=== PATIENT | female | born 1965 | race Caucasian/White ===

== ENCOUNTER 2020-12-23 17:00 | Outpatient (CLI) | payer BC, SELFPAY ==
--- NOTE | ~2020-12-23 | MM_ITS ---
EXAMINATION: MM scrn francy implant BI w alejandro HISTORY: Screening mammogram TECHNIQUE: Craniocaudal and mediolateral oblique 3-D tomosynthesis images with implant displacement a nd synthetic 2-D images were generated. Craniocaudal and mediolateral oblique views of the breasts wi thout implant displacement were obtained using full field digital mammography. CAD analysis was submi tted and interpreted. COMPARISON: 05/21/2018, 05/01/2017, 03/31/2016 bilateral implant digital screening mammogram examination s BREAST PARENCHYMAL COMPOSITION: The breasts are heterogeneously dense, which may obscure small masses . FINDINGS: There is no evidence of suspicious mass, calcification, or architectural distortion to sugg est malignancy in either breast. There has been no suspicious interval change. IMPRESSION: 1. No mammographic evidence of malignancy. 2. Recommend routine screening mammography in one year. BI-RADS Category 1: Negative Reviewed, dictated and finalized at location A.
== END 2020-12-23 17:01 | disposition home or self-care (01) ==
PROVIDERS: PCP Family Medicine; Visit Provider Family Medicine
DX: Z12.31 Encounter for screening mammogram for malignant neoplasm of breast (principal)
CPT/HCPCS: 77063; 77067

== ENCOUNTER 2022-01-09 15:30 | Outpatient (CLI) | payer OTHER, SELFPAY ==
--- NOTE | ~2022-01-09 | MM_ITS ---
EXAMINATION: MM scrn francy implant BI w alejandro HISTORY: Screening mammogram TECHNIQUE: Craniocaudal and mediolateral oblique 3-D tomosynthesis images with implant displacement a nd synthetic 2-D images were generated. Craniocaudal and mediolateral oblique views of the breasts wi thout implant displacement were obtained using full field digital mammography. CAD analysis was submi tted and interpreted. COMPARISON: Comparison to multiple prior studies sequentially, with oldest reviewed study dated 03/17. BREAST PARENCHYMAL COMPOSITION: There are scattered areas of fibroglandular density. FINDINGS: There is no evidence of suspicious mass, calcification, or architectural distortion to sugg est malignancy in either breast. There has been no suspicious interval change. IMPRESSION: 1. No mammographic evidence of malignancy. 2. Recommend routine screening mammography in one year. BI-RADS Category 1: Negative Reviewed, dictated and finalized at location A.
== END 2022-01-09 15:31 | disposition home or self-care (01) ==
PROVIDERS: PCP Family Medicine; Visit Provider Family Medicine
DX: Z12.31 Encounter for screening mammogram for malignant neoplasm of breast (principal)
CPT/HCPCS: 77063; 77067

== ENCOUNTER 2022-01-23 10:15 | Outpatient (CLI) | payer OTHER, SELFPAY ==
--- NOTE | ~2022-01-23 | XR_ITS ---
EXAM: XR hand BI arthritis min 3V DATE: 01/23/2022 10:32 HISTORY: EFFUSION OF HAND, PAIN . COMPARISON: 03/19/2016. FINDINGS: Normal mineralization. No fracture or dislocation. No lytic or blastic lesion. Old left ul caitlyn styloid fracture. Mild joint space narrowing in the interphalangeal joints of the fingers, bilate ral triscaphe joints, and radiocarpal joints bilaterally. Lateral subluxation of the fifth digit left hand in the ball-catcher's view, likely positional or possibly related to old trauma. No erosion or periosteal change. Soft tissues within normal limits. IMPRESSION: Mild osteoarthritic changes in the hands and wrists. Reviewed, dictated and finalized at location K.
[2022-01-23 11:05] LABS: Alanine Aminotransferase 11 U/L (6-35); Albumin Level 3.7 g/dL (3.5-5.1); Alkaline Phosphatase 75 U/L (38-126); Anion Gap 7 mmol/L (8-16); Aspartate Amino Transferase 18 U/L (14-36); Bilirubin,Total 0.4 mg/dL (0.2-1.3); Blood Urea Nitrogen 16 mg/dL (7-17); Calcium 8.1 mg/dL (8.4-10.2); Carbon Dioxide 27 mmol/L (22-30); Chloride 108 mmol/L (98-107); Cholesterol 139 mg/dL (0-200); Estimated Glomerular Filt Rate > 60; HDL Direct 46 mg/dL; Potassium 4.4 mmol/L (3.4-5.0); Sodium 142 mmol/L (137-145); Triglycerides 54 mg/dL (<150)
[2022-01-23 11:17] LABS: LDL Cholesterol Direct 72 mg/dL
[2022-01-23 11:35] LABS: Thyroid Stimulating Hormone 0.805 uIU/mL (0.465-4.680)
[2022-01-23 11:41] LABS: Glucose 96 mg/dL (65-110)
[2022-01-23 12:03] LABS: Vitamin D 25 Hydroxy 54.7 ng/mL
== END 2022-01-23 10:16 | disposition home or self-care (01) ==
LOC: ANHIMG 10:19
PROVIDERS: PCP Family Medicine; Visit Provider Family Medicine
DX: M25.449 Effusion, unspecified hand (principal); K21.9 Gastro-esophageal reflux disease without esophagitis; Z79.899 Other long term (current) drug therapy; E78.2 Mixed hyperlipidemia; E03.9 Hypothyroidism, unspecified; M19.041 Primary osteoarthritis, right hand; M19.031 Primary osteoarthritis, right wrist; M19.042 Primary osteoarthritis, left hand; M19.032 Primary osteoarthritis, left wrist
CPT/HCPCS: 36415; 73130; 80053; 80061; 82306; 82607; 82728; 84443

== ENCOUNTER 2022-02-24 15:47 | Outpatient (CLI) | payer OTHER, SELFPAY ==
[2022-02-24 17:58] LABS: Basophils Percent Auto 0.5 % (0.2-1.2); Eosinophils Absolute Auto 0.3 K/mm3 (0-0.3); Eosinophils Percent Auto 3.4 % (0-4.4); Hematocrit 38.3 % (37.0-47.0); Hemoglobin 12.4 g/dL (12.0-15.0); Immature Granulocyte Absolute 0.02 K/mm3 (0.00-0.031); Immature Granulocyte Percent A 0.3 % (0-0.5); Lymphocytes Absolute Auto 2.53 K/mm3 (0.9-3.2); Lymphocytes Percent Auto 34.2 % (18.3-44.2); Mean Corpuscular HGB Conc 32.4 g/dl (32-36); Mean Corpuscular Hemoglobin 29.4 pg (26-34); Mean Corpuscular Volume 90.8 fl (80-100); Mean Platelet Volume 9.9 fl (7.4-10.4); Monocytes Absolute Auto 0.5 K/mm3 (0.1-0.6); Monocytes Percent Auto 6.4 % (2.6-8.5); Neutrophils Absolute Auto 4.1 K/mm3 (1.3-6.7); Neutrophils Percent Auto 55.2 % (45.5-73.1); Platelet Count Result 439 k/mm3 (150-375); Red Blood Count 4.22 M/mm3 (4.2-5.4); Red Cell Distribution Width 12.6 % (11.5-14.5); White Blood Count 7.4 K/mm3 (4.5-10.0)
[2022-02-24 18:28] LABS: Rheumatoid Factor < 8.6 IU/ML (<12)
[2022-02-24 18:41] LABS: Erythrocyte Sedimentation Rate 24 mm/hr (0-20)
[2022-03-04 17:24] LABS: ANA Cascade Screen Negative (Negative)
== END 2022-02-24 15:48 | disposition home or self-care (01) ==
LOC: ANHGOSHLAB 15:48
PROVIDERS: PCP Family Medicine; Visit Provider Family Medicine
DX: M79.89 Other specified soft tissue disorders (principal); Z51.81 Encounter for therapeutic drug level monitoring; Z79.899 Other long term (current) drug therapy; M25.449 Effusion, unspecified hand
CPT/HCPCS: 36415; 85025; 85652; 86038; 86430

== ENCOUNTER 2022-04-20 15:09 | Outpatient (CLI) | payer OTHER, SELFPAY ==
--- NOTE | ~2022-04-20 | XR_ITS ---
XR lumbar spine 2-3V DATE: 04/20/2022 15:56 INDICATION: Arthropathic psoriasis TECHNIQUE: AP, lateral, coned lateral lumbosacral views COMPARISON: None FINDINGS: Thoracolumbar levoscoliosis. Included lower thoracic and lumbar pedicles are intact. No fracture or bone destruction or spondyloli sthesis. There is moderate loss of disc space height and mild spurring at L4-5 consistent with degenerative di sc disease. The sacroiliac joints appear normal. Surgical clips overlie the lower abdomen and pelvis bilaterally. IMPRESSION: Moderate degenerative disc disease at L4-5 Normal sacroiliac joints Reviewed, dictated and finalized at location B.
--- NOTE | ~2022-04-20 | XR_ITS ---
XR sacroiliac joints min 3V DATE: 04/20/2022 15:56 INDICATION: Arthropathic psoriasis TECHNIQUE: AP and bilateral oblique views of the sacroiliac joints COMPARISON: None FINDINGS: Normal alignment of the sacroiliac joints without evidence of erosive change or ankylosis. Surgical clips overlie the lower abdomen and pelvis bilaterally. Mild bilateral hip osteoarthritis. IMPRESSION: No erosive change or ankylosis at the sacroiliac joints Mild bilateral hip osteoarthritis Reviewed, dictated and finalized at Location A. Reviewed, dictated and finalized at location B.
== END 2022-04-20 15:10 | disposition home or self-care (01) ==
PROVIDERS: PCP Family Medicine; Visit Provider Internal Medicine
DX: L40.50 Arthropathic psoriasis, unspecified (principal); M16.0 Bilateral primary osteoarthritis of hip; M41.9 Scoliosis, unspecified; M47.816 Spondylosis without myelopathy or radiculopathy, lumbar region
CPT/HCPCS: 36415; 72100; 72202; 86480

== ENCOUNTER 2022-04-20 15:49 | Outpatient (CLI) | payer OTHER, SELFPAY ==
[2022-04-24 13:52] LABS: NIL 0.01 IU/mL; Quantiferon TB Plus, 1T NEGATIVE (NEGATIVE)
== END 2022-04-20 15:50 | disposition home or self-care (01) ==
LOC: ANHLAB 15:51
PROVIDERS: PCP Family Medicine; Visit Provider Internal Medicine
DX: L40.50 Arthropathic psoriasis, unspecified (principal)
CPT/HCPCS: 36415; 86480

== ENCOUNTER → 2022-09-22 07:45 | Outpatient (CLI) | payer OTHER, SELFPAY ==
--- NOTE | ~2022-09-22 | US_ITS ---
Abdominal Sonogram: Real-time sonographic imaging of the abdomen was performed. Clinical History: Abdominal pain Findings: The liver appears normal with no evidence of bile duct dilatation. There is a 1 cm hyperec hoic lesion in the right hepatic lobe. Main portal vein demonstrates normal direction of flow. The sp zak is normal in size without evidence of focal lesion. The gallbladder is well distended, and appe ars normal with no evidence of gallstone or wall thickening. The common bile duct measures 3 mm. The visualized pancreas, aorta, and IVC are unremarkable. The right kidney measures 11.4 cm in length a nd the left kidney measures 10.5 cm. There is moderate left hydronephrosis. No right hydronephrosis. Impression: Moderate left hydronephrosis. 1 cm hyperechoic lesion in the right hepatic lobe. This is most likely a small hemangioma. Consider p re and postcontrast MR to confirm. Reviewed, dictated and finalized at [facility]. NG GUIDE Impression: Moderate left hydronephrosis. 1 cm hyperechoic lesion in the right hepatic lobe. This is most likely a small hemangioma. Consider pre and postcontrast MR to confirm.
== END ==
PROVIDERS: PCP Family Medicine; Visit Provider Family Medicine
DX: R10.9 Unspecified abdominal pain (principal); R63.4 Abnormal weight loss; Z80.0 Family history of malignant neoplasm of digestive organs; N13.30 Unspecified hydronephrosis
CPT/HCPCS: 76700

== ENCOUNTER → 2022-09-22 07:47 | Outpatient (CLI) | payer OTHER, SELFPAY ==
--- NOTE | ~2022-09-22 | MR_ITS ---
MRI of the left hand CLINICAL HISTORY: Pain and swelling TECHNIQUE: Axial T1-weighted, T2 fat sat, and T1 fat-sat images, coronal T1-weighted and T2 fat-sat i mages, and sagittal T1-weighted and T2 fat-sat images were performed. Following intravenous administr ation of 14 cc MultiHance gadolinium, T1-weighted fat-sat imaging was performed in the axial and sagi ttal planes. FINDINGS: Bone marrow signals are unremarkable. No fracture or bone marrow edema. No evidence for ost eitis. No erosive change identified. There are small joint effusions at the second metacarpophalangeal and second PIP joints. Visualized c ollateral ligaments and the hand appear intact. There is fluid distention of the flexor digitorum superficialis tendon sheath in the palm of the hand , distal to the carpal tunnel. There is additional mild tenosynovitis along the course of the first, third, and fourth flexor tendons in the digits. There is tenosynovitis of the visualized extensor car pi ulnaris tendon at the wrist. Visualized musculature of the hand demonstrates normal signal intensity. No soft tissue mass evident. IMPRESSION: Tenosynovitis of the flexor digitorum superficialis tendon sheaths in the palm of the hand, with elvie tional tenosynovitis extending along the course of the first, third, and fourth flexor tendons in the digits. Additional tenosynovitis, partially imaged, of the extensor carpi ulnaris tendon at the wrist. Small joint effusions at the second PIP and second MCP joints. Reviewed, dictated and finalized at [facility]. GER ADMINISTRATIVE IMPRESSION: Tenosynovitis of the flexor digitorum superficialis tendon sheaths in the palm of the hand, with additional tenosynovitis extending along the course of the fi rst, third, and fourth flexor tendons in the digits. Additional tenosynovitis, partially imaged, of the extensor carpi ulnaris tendo n at the wrist. Small joint effusions at the second PIP and second MCP joints.
--- NOTE | ~2022-09-22 | MR_ITS ---
MRI of the right hand CLINICAL HISTORY: Inflammatory arthropathy TECHNIQUE: Axial T1-weighted and T2 fat sat, and T1 fat-sat images, coronal T1-weighted and T2 fat-sa t images, and sagittal T1-weighted and T2 fat-sat images were performed. Following intravenous admini stration of 14 cc MultiHance gadolinium, T1-weighted fat-sat imaging was performed in the axial and s agittal planes. FINDINGS: Bone marrow signals are unremarkable. No fracture or bone marrow edema. No periosteal react ion or evidence for osteomyelitis. Joint spaces are preserved. No significant degenerative or erosive change. No significant joint effusion. Visualized collateral ligaments throughout the hand appear in tact. There is fluid distention of the flexor digitorum superficialis tendon sheath in the region of the pa lm, there is distal to the carpal tunnel. There is also fluid distention of the proximal most portion of the visualized extensor carpi ulnaris tendon sheath, with probable minimal fluid distention of th e proximal most portion of the visualized extensor digitorum tendon sheaths. There is extensive, mild tenosynovitis of the fifth digit flexor tendon. Visualized musculature of the hand is unremarkable. No tendon rupture identified. IMPRESSION: Tenosynovitis of the flexor digitorum superficialis in the palm of the hand, distal to the carpal jermaine lynne. Additional tenosynovitis of the proximal most visualized portions of the extensor carpi ulnaris and e xtensor digitorum tendon sheaths (at the wrist). Extensive, mild tenosynovitis of the fifth digit flexor tendon. Reviewed, dictated and finalized at [facility]. ENT MANAGER IMPRESSION: Tenosynovitis of the flexor digitorum superficialis in the palm of the hand, di stal to the carpal tunnel. Additional tenosynovitis of the proximal most visualized portions of the extens or carpi ulnaris and extensor digitorum tendon sheaths (at the wrist). Extensive, mild tenosynovitis of the fifth digit flexor tendon.
== END ==
PROVIDERS: PCP Family Medicine; Visit Provider Internal Medicine
DX: M19.041 Primary osteoarthritis, right hand (principal); M19.042 Primary osteoarthritis, left hand
CPT/HCPCS: 73220; A9577

== ENCOUNTER → 2022-10-20 15:16 | Outpatient (CLI) | payer OTHER, SELFPAY ==
--- NOTE | ~2022-10-20 | MR_ITS ---
EXAMINATION: MR abdomen wo/w con DATE: 10/20/2022 16:14 INDICATION: Liver mass. TECHNIQUE: Magnetic resonance imaging (MRI) of the abdomen was performed without and with 15 mL Multi Michelle intravenous contrast. COMPARISON: Abdomen ultrasound 09/22/2022, CT abdomen and pelvis 01/29/2016 FINDINGS: There are bilateral breast implants. There is intracapsular rupture of the left breast implant. There is a 7 mm cyst in left hepatic lobe. In the right hepatic lobe, there is a 12 mm mass with delayed h yperenhancement, consistent with a hemangioma. The gallbladder, spleen, pancreas, adrenal glands, and right kidney are normal. 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 There is hydronep hrosis of the upper pole moiety with severe atrophy. There is severe hydronephrosis and proximal hydr oureter of the mid zone and lower pole moiety. There are no dilated loops of bowel. There are no path ologically enlarged lymph nodes. There is no free intraperitoneal fluid. IMPRESSION: 1. 12 mm liver mass with delayed hyperenhancement and hyperechogenicity on the prior ultrasound, cons istent with a hemangioma. 2. 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 Hydronephrosis and severe atrophy of the upper po le moiety. Severe hydronephrosis and proximal hydroureter of the mid zone and lower pole moiety. CT a bdomen and pelvis without and with contrast (CT urogram) is recommended. Reviewed, dictated and finalized at location A. IMPRESSION: 1. 12 mm liver mass with delayed hyperenhancement and hyperechogenicity on the prior ultrasound, consistent with a hemangioma. 2. 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 Hydronephrosis and severe a trophy of the upper pole moiety. Severe hydronephrosis and proximal hydroureter of the mid zone and lower pole moiety. CT abdomen and pelvis without and with contrast (CT urogram) is recommended.
== END ==
PROVIDERS: PCP Family Medicine; Visit Provider Family Medicine
DX: R93.5 Abnormal findings on diagnostic imaging of other abdominal regions, including retroperitoneum (principal); R16.0 Hepatomegaly, not elsewhere classified; N13.30 Unspecified hydronephrosis
CPT/HCPCS: 74183; A9577

== ENCOUNTER → 2022-11-01 15:17 | Outpatient (CLI) | payer OTHER, SELFPAY ==
--- NOTE | ~2022-11-01 | CT_ITS ---
EXAMINATION: CT abdomen pelvis wo/w con DATE: 11/01/2022 15:55 INDICATION: Unspecified hydronephrosis TECHNIQUE: Computed tomography (CT) of the abdomen and pelvis was performed without intravenous contr ast. CT of the abdomen and pelvis was then performed with a total of 130 mL Omnipaque 350 intravenous contrast using a double-bolus technique for simultaneous opacification of the renal parenchyma and r enal collecting system. The dose-length product (DLP) was 1301.22 mGy-cm. Automated exposure control and iterative reconstruction technique were employed. COMPARISON: 01/29/2016 FINDINGS: Minimal dependent atelectasis is present in the lung bases. The heart size is normal. There are bilateral breast implants with intracapsular rupture of the left breast implant. The liver, sple en, pancreas, gallbladder, and adrenal glands are normal. The right kidney is unremarkable. No pathol ogically enlarged abdominal or pelvic lymph nodes are identified. No free intraperitoneal gas or evid ence of bowel obstruction. Changes of pelvic lymph node dissection are noted. There is mild lumbar sp ondylosis. 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 The upper pole collecting system appears to end in an extravesical ureterocele near the bladder neck/urethra. The lower pole co llecting system terminates in the bladder is superolateral to the upper pole system. There is moderat e hydronephrosis of the lower pole system. There is complete atrophy of the upper pole of the kidney served by the upper pole collecting system. IMPRESSION: 1. 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 2. Chronic atrophy of the left kidney upper pole moiety with chronic left hydroureter ending in the e ctopic ureterocele Reviewed, dictated and finalized at location L. IMPRESSION: 1. 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 2. Chronic atrophy of the left kidney upper pole moiety with chronic left hydro ureter ending in the ectopic ureterocele
== END ==
PROVIDERS: PCP Physician Assistant; Visit Provider Physician Assistant
DX: N13.30 Unspecified hydronephrosis (principal); Q63.0 Accessory kidney; N26.1 Atrophy of kidney (terminal); N13.4 Hydroureter
CPT/HCPCS: 74178; Q9967

== ENCOUNTER 2022-11-16 15:36 | Outpatient (CLI) | payer OTHER, SELFPAY ==
[2022-11-16 19:37] LABS: Basophils Percent Auto 0.4 % (0.2-1.2); Eosinophils Absolute Auto 0.1 K/mm3 (0-0.3); Eosinophils Percent Auto 1.8 % (0-4.4); Hematocrit 38.1 % (37.0-47.0); Hemoglobin 12.5 g/dL (12.0-15.0); Immature Granulocyte Absolute 0.02 K/mm3 (0.00-0.031); Immature Granulocyte Percent A 0.3 % (0-0.5); Lymphocytes Absolute Auto 1.93 K/mm3 (0.9-3.2); Lymphocytes Percent Auto 26.7 % (18.3-44.2); Mean Corpuscular HGB Conc 32.8 g/dl (32-36); Mean Corpuscular Hemoglobin 28.5 pg (26-34); Mean Corpuscular Volume 86.8 fl (80-100); Mean Platelet Volume 9.8 fl (7.4-10.4); Monocytes Absolute Auto 0.4 K/mm3 (0.1-0.6); Monocytes Percent Auto 6.1 % (2.6-8.5); Neutrophils Absolute Auto 4.7 K/mm3 (1.3-6.7); Neutrophils Percent Auto 64.7 % (45.5-73.1); Platelet Count Result 381 k/mm3 (150-375); Red Blood Count 4.39 M/mm3 (4.2-5.4); Red Cell Distribution Width 13.3 % (11.5-14.5); White Blood Count 7.2 K/mm3 (4.5-10.0)
[2022-11-16 19:55] LABS: Alanine Aminotransferase 15 U/L (6-35); Alkaline Phosphatase 78 U/L (38-126); Anion Gap 5 mmol/L (8-16); Aspartate Amino Transferase 22 U/L (14-36); Bilirubin,Total 0.8 mg/dL (0.2-1.3); Blood Urea Nitrogen 19 mg/dL (7-17); Carbon Dioxide 27 mmol/L (22-30); Chloride 107 mmol/L (98-107); Cholesterol 156 mg/dL (0-200); Estimated Glomerular Filt Rate > 60; Glucose 83 mg/dL (65-110); HDL Direct 53 mg/dL; Potassium 3.9 mmol/L (3.4-5.0); Sodium 139 mmol/L (137-145); Triglycerides 101 mg/dL (<150)
[2022-11-16 20:06] LABS: LDL Cholesterol Direct 83 mg/dL
[2022-11-16 20:41] LABS: Thyroid Stimulating Hormone 0.238 uIU/mL (0.465-4.680)
== END 2022-11-16 15:37 | disposition home or self-care (01) ==
LOC: ANHGOSHLAB 15:36
PROVIDERS: PCP Physician Assistant; Visit Provider Physician Assistant
DX: E03.9 Hypothyroidism, unspecified (principal); E66.3 Overweight; E78.2 Mixed hyperlipidemia; N13.30 Unspecified hydronephrosis
CPT/HCPCS: 36415; 80053; 80061; 84443; 85025

== ENCOUNTER 2022-12-21 08:01 | Outpatient (CLI) | payer OTHER, SELFPAY ==
[2022-12-21 19:28] LABS: Basophils Percent Auto 0.5 % (0.2-1.2); Eosinophils Absolute Auto 0.4 K/mm3 (0-0.3); Eosinophils Percent Auto 4.6 % (0-4.4); Hematocrit 40.4 % (37.0-47.0); Hemoglobin 12.9 g/dL (12.0-15.0); Immature Granulocyte Absolute 0.03 K/mm3 (0.00-0.031); Immature Granulocyte Percent A 0.4 % (0-0.5); Lymphocytes Absolute Auto 1.37 K/mm3 (0.9-3.2); Lymphocytes Percent Auto 16.3 % (18.3-44.2); Mean Corpuscular HGB Conc 31.9 g/dl (32-36); Mean Corpuscular Hemoglobin 28.8 pg (26-34); Mean Corpuscular Volume 90.2 fl (80-100); Mean Platelet Volume 9.5 fl (7.4-10.4); Monocytes Absolute Auto 0.5 K/mm3 (0.1-0.6); Monocytes Percent Auto 6.2 % (2.6-8.5); Neutrophils Absolute Auto 6.1 K/mm3 (1.3-6.7); Platelet Count Result 383 k/mm3 (150-375); Red Blood Count 4.48 M/mm3 (4.2-5.4); Red Cell Distribution Width 13.5 % (11.5-14.5); White Blood Count 8.4 K/mm3 (4.5-10.0)
== END 2022-12-21 08:02 | disposition home or self-care (01) ==
LOC: ANHGOSHLAB 08:03
PROVIDERS: PCP Physician Assistant; Visit Provider Physician Assistant
DX: D75.839 Thrombocytosis, unspecified (principal); R79.89 Other specified abnormal findings of blood chemistry
CPT/HCPCS: 36415; 84443; 85025

== ENCOUNTER 2023-02-07 16:08 | Outpatient (CLI) | payer OTHER, SELFPAY | END 2023-02-07 16:09 | disposition home or self-care (01) | LOC: ANHGOSHLAB 16:12 | PROVIDERS: PCP Physician Assistant | DX: N13.30 Unspecified hydronephrosis (principal) | CPT/HCPCS: 87086 ==

== ENCOUNTER 2023-02-27 19:22 | Outpatient (NON) | payer OTHER, SELFPAY | END 2023-02-27 19:23 | disposition home or self-care (01) | LOC: ANHOBOP 19:30 | PROVIDERS: PCP Family Medicine; Visit Provider Family Medicine | DX: R31.9 Hematuria, unspecified (principal) | CPT/HCPCS: 87086 ==

== ENCOUNTER 2023-07-12 08:11 | Outpatient (CLI) | payer OTHER, SELFPAY ==
[2023-07-12 20:31] LABS: Basophils Percent Auto 0.5 % (0.2-1.2); Eosinophils Absolute Auto 0.1 K/mm3 (0-0.3); Eosinophils Percent Auto 1.6 % (0-4.4); Hematocrit 40.2 % (37.0-47.0); Hemoglobin 12.9 g/dL (12.0-15.0); Immature Granulocyte Absolute 0.03 K/mm3 (0.00-0.031); Immature Granulocyte Percent A 0.4 % (0-0.5); Lymphocytes Absolute Auto 1.49 K/mm3 (0.9-3.2); Lymphocytes Percent Auto 18.2 % (18.3-44.2); Mean Corpuscular HGB Conc 32.1 g/dl (32-36); Mean Corpuscular Hemoglobin 28.4 pg (26-34); Mean Corpuscular Volume 88.5 fl (80-100); Mean Platelet Volume 9.9 fl (7.4-10.4); Monocytes Absolute Auto 0.5 K/mm3 (0.1-0.6); Monocytes Percent Auto 6.2 % (2.6-8.5); Neutrophils Percent Auto 73.1 % (45.5-73.1); Platelet Count Result 439 k/mm3 (150-375); Red Blood Count 4.54 M/mm3 (4.2-5.4); Red Cell Distribution Width 13.1 % (11.5-14.5); White Blood Count 8.2 K/mm3 (4.5-10.0)
== END 2023-07-12 08:12 | disposition home or self-care (01) ==
LOC: ANHGOSHLAB 08:13
PROVIDERS: PCP Family Medicine; Visit Provider Physician Assistant
DX: D75.839 Thrombocytosis, unspecified (principal); R79.89 Other specified abnormal findings of blood chemistry
CPT/HCPCS: 36415; 84443; 85025

== ENCOUNTER 2023-07-26 13:45 | Outpatient (CLI) | payer OTHER, SELFPAY ==
--- NOTE | ~2023-07-26 | MM_ITS ---
EXAMINATION: MM scrn francy implant BI w alejandro HISTORY: Screening mammogram TECHNIQUE: Craniocaudal and mediolateral oblique 3-D tomosynthesis images with implant displacement a nd synthetic 2-D images were generated. Craniocaudal and mediolateral oblique views of the breasts wi thout implant displacement were obtained using full field digital mammography. CAD analysis was submi tted and interpreted. COMPARISON: 01/09/2022, 12/23/2020, 05/21/2018 bilateral implant screening mammogram examinations BREAST PARENCHYMAL COMPOSITION: The breasts are heterogeneously dense, which may obscure small masses . FINDINGS: Status post bilateral augmentation mammoplasty.. There is no evidence of suspicious mass, c alcification, or architectural distortion to suggest malignancy in either breast. There has been no s uspicious interval change. IMPRESSION: 1. No mammographic evidence of malignancy. 2. Recommend routine screening mammography in one year. BI-RADS Category 1: Negative Reviewed, dictated and finalized at location A. E TESTER
--- NOTE | ~2023-07-26 | DEXA_ITS ---
Bone Density Report Name: PHYLLIS CHATMAN Age: 58 Sex: Female Ethnicity: White Date of : 1965 Indication: postmenopausal; screening for osteoporosis; parental hip fracture; hysterectomy; Referring Provider: RAGHAV ELDER Study: Bone densitometry was performed. Exam Date: July 26, 2023 Accession number: [id number] Bone Density: Region BMD T-score Z-score Classification AP Spine(L1-L4) 0.956 -0.8 0.3 Normal Femoral Neck (Left) 0.649 -1.8 -0.7 Osteopenia Total Hip (Left) 0.763 -1.5 -0.7 Osteopenia Femoral Neck (Right) 0.643 -1.9 -0.7 Osteopenia Total Hip (Right) 0.750 -1.6 -0.8 Osteopenia Total Hip Mean 0.757 -1.6 -0.8 Osteopenia World Health Organization criteria for BMD impression classify patients as: Normal (T-score at or above -1.0), Osteopenia (T-score between -1.0 and -2.5), or Osteoporosis (T-score at or below -2.5). 10-year Fracture Risk(1): Major Osteoporotic Fracture 15% Hip Fracture 0.8% Reported Risk Factors: [place] (), Neck BMD=0.643, BMI=25.2, parental fracture (1) FRAX(R) Version 3.08. Fracture probability calculated for an untreated patient. Fracture probability may be lower if the patient has received treatment. Clinical Information Provided by Patient: Parent has had a hip fracture Has used the following medications: HRT (i.e. estrogen/hormone therapy) Has the following medical conditions: Hysterectomy Patient maximum height was 68 Menopause Age: 41 Does not regularly consume dairy products Onset of menses at age 17 Number of children 2 Impression: The patient has low bone mass, based on the Right Femoral Neck T-score. The patient has an estimated ten-year risk of hip fracture of 0.8% and an estimated ten-year risk of major fracture of 15%, based on the WHO FRAX algorithm. The patient has risk factors, including: parental hip fracture. Discussion: BONE DENSITY IS LOW AT ONE OR MORE SKELETAL SITES. This patient's lowest T-score is low at one or more skeletal sites. It meets the World Health Organization's (WHO) criteria for ?low bone mass? (T-score between -1.0 and -2.5). The patient's 10-year risk of fracture as calculated by FRAX is less than the threshold where pharmacological therapy is recommended by the National Osteoporosis Foundation (NOF). However, all treatment decisions require clinical judgment and consideration of individual patient factors, including patient preferences, comorbidities, previous drug use, risk factors not captured in the FRAX model (e.g., frailty, falls, vitamin D deficiency, increased bone turnover, interval significant decline in bone density) and possible under or overestimation of fracture risk by FRAX. The patient should follow a healthful lifestyle (good nutrition with adequate calcium and vitamin D, and a
== END 2023-07-26 13:46 | disposition home or self-care (01) ==
LOC: ANHIMG 13:48
PROVIDERS: PCP Family Medicine; Visit Provider Obstetrics & Gynecology Gynecology
DX: Z12.31 Encounter for screening mammogram for malignant neoplasm of breast (principal); M85.89 Other specified disorders of bone density and structure, multiple sites; Z78.0 Asymptomatic menopausal state
CPT/HCPCS: 77063; 77067; 77080

== ENCOUNTER 2023-12-17 09:29 | Outpatient (CLI) | payer BC, SELFPAY ==
--- NOTE | ~2023-12-17 | XR_ITS ---
Left Knee Technique: AP and lateral views were obtained. Clinical History: Pain Findings: No fracture or dislocation is seen. Osseous alignment is anatomic. Joint spaces are preserv ed without degenerative or erosive change. Small joint effusion is seen. Impression: Small joint effusion. Reviewed, dictated and finalized at [facility]. Impression: Small joint effusion.
--- NOTE | ~2023-12-17 | XR_ITS ---
AP/oblique views of the SI joints CLINICAL HISTORY: Pain FINDINGS: There is minimal degenerative change SI joints. No erosive or sclerotic change. No ankylosi s. Bilateral hip joints are intact. Soft tissues are unremarkable aside from scattered surgical clips . IMPRESSION: Minimal degenerative change of the SI joints. Reviewed, dictated and finalized at location .
--- NOTE | ~2023-12-17 | XR_ITS ---
Right Hand Technique: PA, oblique, and lateral views were obtained. Clinical History: Pain Findings: No acute fracture or dislocation is seen. Osseous alignment is anatomic. There is mild dege nerative change of the interphalangeal joints of the fingers. Soft tissues are unremarkable. Impression: Mild degenerative change scattered in the interphalangeal joints of the fingers. Reviewed, dictated and finalized at location . Impression: Mild degenerative change scattered in the interphalangeal joints of the fingers .
--- NOTE | ~2023-12-17 | XR_ITS ---
Left Hand Technique: PA, oblique, and lateral views were obtained. Clinical History: Pain Findings: No acute fracture or dislocation is seen. Osseous alignment is anatomic. There is mild dege nerative change of the interphalangeal joints of the fingers. Soft tissues are unremarkable. Impression: Mild degenerative change of the interphalangeal joints of the fingers. Reviewed, dictated and finalized at location . Impression: Mild degenerative change of the interphalangeal joints of the fingers.
--- NOTE | ~2023-12-17 | XR_ITS ---
Right Knee Technique: AP and lateral views were obtained. Clinical History: Pain Findings: No fracture or dislocation is seen. Osseous alignment is anatomic. Mild degenerative spurri ng noted. Soft tissues are unremarkable. No joint effusion is seen. Impression: Mild degenerative spurring. Reviewed, dictated and finalized at location . Impression: Mild degenerative spurring.
--- NOTE | ~2023-12-17 | XR_ITS ---
Cervical Spine: AP, lateral, open-mouth views Clinical History: Pain Findings: There is reversal normal cervical lordosis. There is 2 mm anterolisthesis of C3 over C4. Th ere is moderate degenerative disc narrowing at C4-C5, C5-C6, and C6-C7. Mild facet arthropathy is pre sent. Pre-vertebral soft tissues are unremarkable. Impression: 2 mm anterolisthesis of C3 over C4. Moderate degenerative spondylosis, as above. Reviewed, dictated and finalized at location . Impression: 2 mm anterolisthesis of C3 over C4. Moderate degenerative spondylosis, as above.
== END 2023-12-17 09:30 ==
LOC: MICIMG 09:35
PROVIDERS: PCP Family Medicine; Visit Provider Internal Medicine
DX: M19.042 Primary osteoarthritis, left hand (principal); M19.041 Primary osteoarthritis, right hand; M46.1 Sacroiliitis, not elsewhere classified; M47.892 Other spondylosis, cervical region; M25.761 Osteophyte, right knee; M25.462 Effusion, left knee
CPT/HCPCS: 72050; 72202; 73130; 73560

== ENCOUNTER 2024-10-24 10:38 | Outpatient (CLI) | payer BC, SELFPAY ==
--- OUTSIDE RECORDS SUMMARY | 2024-10-24 11:35 | XMS_ITS | Patient Health Record ---
Author Organization [facility] [employer] Address [address] [place], [place] [address] Care Team Providers Care Papier Mache' Molder Name Role Phone GWEN GOMES MD Primary Care Provider Unav Latonia Riojas Unavailable [phone] ScheJoanne berman Unavailable ALLERGIES No Known Allergies RESULTS Component Value Reference Range Notes Uric Acid, Serum Reviewed date:12/25/2023 02:27:45 PM Interpretation: Performing Lab:[facility] [place], [address] [place] [address], Phone - [phone], Director - [facility] Notes/Report: Uric Acid 5.0 3.0-7.2 mg/dL Therapeutic ta rget for gout patients: <6.0 Complement C4, Serum Reviewed date:12/25/2023 02:22:00 PM Interpretation: Performing Lab:[facility] [place], [address] [place] [address], Phone - [phone], Director - [facility] Notes/Report: Complement C4, Serum 25 12-38 mg/dL T4 Free Reviewed date:12/25/2023 02:29:16 PM Interpretation: Performing Lab[facility] [address] [place] [address], Phone - [phone], Director - [facility] Notes/Report: T4,Free(Direct) 1.42 0.82-1.77 ng/dL TSH Reviewed date:12/25/2023 02:29:04 PM Interpretation: Performing Lab:[facility] [place], [address] [facility], Phone - [phone], Director - [facility] hospital[facility] Notes/Report: TSH 1.920 0.450-4.500 uIU/mL CBC With Differential/Platel et Reviewed date:12/25/2023 02:28:52 PM Interpretation: Performing Lab:[facility] [place], [address] [place] [address], Phone - [phone], Director - Laura Notes/Report: WBC 8.3 3.4-10.8 x10E3/uL RBC 4.71 3.77-5.28 x10E6/uL Hemoglobin 13.1 11.1-15.9 g/dL Hematocrit 41.8 34.0-46.6 % MCV 89 79-97 fL MCH 27.8 26.6-33.0 pg MCHC 31.3 31.5-35.7 g/dL RDW 13.2 11.7-15.4 % Platelets 415 150-450 x10E3/uL Neutrophils 72 Not Estab. % Lymphs 18 Not Estab. % Monocytes 7 Not Estab. % Eos 3 Not Estab. % Basos 0 Not Estab. % Immature Cells Neutrophils (Absolute) 6.0 1.4-7.0 x10E3/uL Lymphs (Absolute) 1.5 0.7-3.1 x10E3/uL Monocytes(Absolute) 0.5 0.1-0.9 x10E3/uL Eos (Absolute) 0.2 0.0-0.4 x10E3/uL Baso (Absolute) 0.0 0.0-0.2 x10E3/uL Immature Granulocytes 0 Not Estab. % Immature Grans (Abs) 0.0 0.0-0.1 x10E3/uL NRBC Hematology Comments: Sed Rate - Westergren Reviewed date:12/25/2023 02:21:58 PM Interpretation: Performing Lab:[facility] [place], [address] [place] [address], Phone - [phone], Director - Laura Notes/Report: Sedimentation Rate-Westergren 34 0-40 mm/hr Complement C3, Serum Reviewed date:12/25/2023 05:21:05 PM Interpretation: Performing Lab:[facility] [place], [address] [place] [address], Phone - [phone], Director - Laura Notes/Report: Complement C3, Serum 169 82-167 mg/dL Rheumatoid Arthritis Factor Reviewed date:12/25/2023 02:27:53 PM Interpretation: Performing Lab:[facility] [address] [place] [address], Phone - [phone], [facility] Notes/Report: Rheumatoid Factor (RF) 10.0 <14.0 IU/mL C-Reactive Protein, Quant Reviewed date:12/25/2023 05:43:50 PM Interpretation: Performing Lab:[address], Phone - [phone], Director - [facility] Notes/Report: C-Reactive Protein, Quant 13 0-10 mg/L HLA B 27 Disease Association Reviewed date:12/25/2023 02:29:01 PM Interpretation: Performing Lab:[address], Phone - [phone], Director - [facility] Notes/Report: HLA-B27 Negative HLA-B*27 Negative B27 allele interpretation for all loci based on IMGT/HLA database version 3.51.0 This test was developed and its performance characteristics determined by [facility]. It has not been cleared or approved by the Food and Drug Administration. HLA Lab CLIA ID Number [id number] This test was performed using Polymerase Chain Reaction (PCR) and Sequence Specific Oligonucleotide Probes (SSOP) technique. Sequence Based Typing (SBT) may be used as a supplemental method when necessary. If you have questions, please call [employer] service at or email at [email or web address]. CCP IgG Antibodies Reviewed date:12/25/2023 02:22:06 PM Interpretation: Performing Lab:[facility] [address] [place] [address], Phone - [phone], Director - [facility] Notes/Report: Anti-CCP Ab, IgG/IgA 8 0-19 units Negative <20 Weak positive 20 - 39 Moderate positive 40 - 59 Strong positive >59 Comp. Metabolic Panel (14) Reviewed date:12/25/2023 02:28:58 PM Interpretation: Performing Lab:[facility] [address] [place] [address], Phone - [phone], [facility] Notes/Report: Glucose 96 70-99 mg/dL BUN 19 6-24 mg/dL Creatinine 0.86 0.57-1.00 mg/dL eGFR 79 >59 mL/min/1.73 BUN/Creatinine Ratio 22 9-23 Sodium 141 134-144 mmol/L Potassium 4.6 3.5-5.2 mmol/L Chloride 105 96-106 mmol/L Carbon Dioxide, Total 24 20-29 mmol/L Calcium 9.3 8.7-10.2 mg/dL Protein, Total 7.2 6.0-8.5 g/dL Albumin 4.1 3.8-4.9 g/dL Globulin, Total 3.1 1.5-4.5 g/dL A/G Ratio 1.3 1.2-2.2 Bilirubin, Total 0.7 0.0-1.2 mg/dL Alkaline Phosphatase 85 44-121 IU/L AST (SGOT) 15 0-40 IU/L ALT (SGPT) 12 0-32 IU/L ALISSA Panel (ALISSA+VANIA+Scl 70+Sj Nadir+SjoSSB) Reviewed date:12/25/2023 02:28:40 PM Interpretation: Performing Lab:[facility] [address] [facility], Phone - [phone], Director - [facility] Notes/Report: ALISSA by IFA Rfx Titer/Pattern Negative Negative <1:80 Borderline 1:80 Positive >1:80 ICAP nomenclature: AC-0 For more information about Hep-2 cell patterns use ANApatterns.org, the official website for the International Consensus on Antinuclear Antibody (ALISSA) Patterns (ICAP). MINING CONSULTANT Antibodies <0.2 0.0-0.9 AI Rodríguez Antibodies <0.2 0.0-0.9 AI Antiscleroderma-70 Antibodies <0.2 0.0-0.9 AI Sjogren's Anti-SS-A <0.2 0.0-0.9 AI Sjogren's Anti-SS-B <0.2 0.0-0.9 AI VITAMIN B12 Reviewed date:12/25/2023 02:27:41 PM Interpretation: Performing Lab:[facility] [address] [facility] [place] [place], Phone - [phone], Director - [facility] Notes/Report: Vitamin B12 282 653-0242 pg/mL DS DNA-CRITHIDIA IFA W/REFLE X TO TITER-[facility] Reviewed date:12/25/2023 02:28:33 PM Interpretation: Performing Lab:[address], Phone - [phone], Director - [facility] Notes/Report: dsDNA Crithidia luciliae IFA Negative Negative QUANTIFERON(R)-TB GOLD PLUS, 1 TUBE Reviewed date:12/25/2023 05:43:59 PM Interpretation: Performing Lab:[address], Phone - [phone], Director - [facility] Notes/Report: QuantiFERON Incubation Incubation performed. QuantiFERON-TB Gold Plus Negative Negative No response to M tuberculosis antigens detected. Infection with M tuberculosis is unlikely, but high risk individuals should be considered for additional testing (ATS/IDSA/CDC Clinical Practice Guidelines, 2017). The reference range is an Antigen minus Nil result of <0.35 IU/mL. Chemiluminescence immunoassay methodology QuantiFERON Criteria QuantiFERON-TB Gold Plus is a qualitative indirect test for M tuberculosis infection (including disease) and is intended for use in conjunction with risk assessment, radiography, and other medical and diagnostic evaluations. The QuantiFERON-TB Gold Plus result is determined by subtracting the Nil value from either TB antigen (Ag) value. The Mitogen tube serves as a control for the test. QuantiFERON TB1 Ag Value 0.02 QuantiFERON TB2 Ag Value 0.03 QuantiFERON Nil Value 0.02 QuantiFERON Mitogen Value >10.00 Acute Hepatitis Reviewed date:12/25/2023 02:28:31 PM Interpretation: Performing Lab:[facility], [address] [place] [address], Phone - [phone], Director - [facility] Notes/Report: Hep A Ab, IgM Negative Negative HBsAg Screen Negative Negative Hep B Core Ab, IgM Negative Negative HCV Ab Non Reactive Non Reactive Interpretation: Not infected with HCV unless early or acute infection is suspected (which may be delayed in an immunocompromised individual), or other evidence exists to indicate HCV infection. REASON FOR REFERRAL No Information MEDICATIONS Medication SIG (Take, Route, Frequency, Duration) Notes Start Date End Date Status predniSONE 5 mg 6 tablets for 2 days then decrease by 1 tablet every 2 days until sunny orally once a day for 12 days 04/15/2024 Not-Taking levothyroxine 75 mcg (0.075 mg) 1 tab(s) orally once a day Active Metamucil 3.4 g/5.2 g as directed orally once a day Active Xiidra 5% 1 gtt eye as directed Active fish oil/omega 3 1200mg/720mg Active Aspirin Low Dose 81 mg 1 tab(s) orally o nce a day Active famotidine 20 mg 1 tab(s) orally 2 ti mes a day Active estradiol 1 mg 1 tab(s) orally once a day Active Caltrate 600 + D 600 mg-20 mcg 1 tab(s) orally 2 times a day Active Multivites as directed Active Vitamin C 250 mg 1 tab(s) chewed once a day Active Vitamin D3 1250 mcg 1 cap(s) orally once a week Active predniSONE 5 mg 6 tablets for 1 day, decrease by 1 tablet every day orally once a day for 6 days 02/22/2024 Not-Taking Digestive Advantage Daily Probiotics - 1 cap(s) orally once a day Active CeleBREX 200 mg 1 cap(s) orally 2 ti mes a day for 30 days Active methotrexate 2.5 mg 6 tabs orally once a week for 28 days Active Hadlima PushTouch Autoinjector bwwd 40 mg/0.4 mL 0.4 mL subcutaneously every other week for 28 days 04/09/2024 Active glucosamine chondritin MSN 1500mg/1250mg Active Boswellia Complex M1150 1 tab 2-4 times daily Active Digestive Enzymes 1 tab bid/meals Active biotin 5000 mcg 1 tab(s) orally once a day Active Zinc orally Active curamed 750mg 1 bid Active CoQ10 (obsolete) 100 mg 1 cap(s) orally once a day 1000mg Active Collagen supplement daily Active SOCIAL HISTORY Sex Assigned At : Social History Observation Description Sex Assigned At Unknown PROBLEMS Problem Type ICD Code Onset Dates Problem Status W/U Status Risk SNOMED Code Notes Problem Psoriasis (L40.9) Active confirmed 9014 002 Problem Encounter for other specified special examinations (Z01.89) Active confirmed 881012610 Problem Psoriatic arthritis (L40.50) Active confirmed 183480089 Problem Primary generalized (osteo)arthritis (M15.0) Active confirmed 264263074 Problem Degenerative lumbar disc (M51.36) Active confirmed 83394342 VITAL SIGNS Heart Rate 70 /min 05/14/2024 Blood pressure diastolic 73 mm Hg 05/14/2024 Height 68 in 05/14/2024 Blood pressure systolic 115 mm Hg 05/14/2024 Weight 160 lbs 05/14/2024 BMI 24.33 kg/m2 05/14/2024 Encounters Encounter Location Date Provider Diagnosis [facility], [address] [id number] 01/04/2024 Joanne Scheidemantel Psoriasis L40.9 and Encounter for drug therapy Z79.899 [facility] [address] [place] [address], [facility] [address] [place], [place] [id number] 12/17/2023 Latonia Debelloendorf Polyarthralgia M25.5 0 ; Dorsalgia, unspecified M54.9 ; Neck pain M54.2 ; Psoriasis L40.9 ; 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 ; Encounter for other specified special examinations Z01.89 and Encounter for screening for respiratory tuberculosis Z11.1 [facility] [address] [place] [address], [address] [id number] 02/22/2024 Joanne Scheidemantel Psoriasis L40.9 and Psoriatic arthritis L40.50 [facility] [address] [place] [address], [address] [id number] 04/21/2024 Joanne Scheidemantel [facility] [address] [place] [address], [address] [id number] 03/21/2024 Latonia Dehlendorf Psoriasis L40.9 ; Psoriatic arthritis L40.50 ; Primary generalized (osteo)arthritis M15.0 ; Degenerative lumbar disc M51.36 and Other intermodal customer service (current) drug therapy Z79.899 [facility] [address] [place] [address], [address] [id number] 04/09/2024 Latonia Dehlendorf Psoriasis L40.9 ; Psoriatic arthritis L40.50 ; Primary generalized (osteo)arthritis M15.0 ; Degenerative lumbar disc M51.36 and Other intermodal customer service (current) drug therapy Z79.899 [facility], [address] [id number] 05/21/2024 Latonia Nevaehendorf [facility] [address], [address] [id number] 05/14/2024 Latonia Dehlendorf Psoriasis L40.9 ; Psoriatic arthritis L40.50 ; Primary generalized (osteo)arthritis M15.0 ; Other intervertebral disc degeneration, lumbar region with discogenic back pain only M51.360 and Other intermodal customer service (current) drug therapy Z79.899 [facility] [address] [facility], [address] [id number] 09/16/2024 Joannekvng Brownetel [facility] [address] [facility], [address] [id number] 12/17/2023 Latonia Dehlendorf [facility] [address] [facility], [address] [id number] 01/04/2024 Latonia Dehlendorf [facility] [address] [id number] 01/28/2024 Latonia Dehlendorf [facility] [address] [facility], [address] [id number] 02/05/2024 Latonia Dehlendorf [facility] [address] [id number] 02/22/2024 Latonia Dehlendorf [facility] [address] [facility], [address] [id number] 02/22/2024 Latonia Dehlendorf [facility] [address] [id number] 02/28/2024 Latonia Dehlendorf [facility] [address] [facility], [address] [id number] 03/04/2024 Latonia Dehlendorf [facility] [address] [facility], [address] [id number] 04/08/2024 Latonia Dehlendorf Psoriatic arthritis L40.50 [facility] [address] [facility], [address] [id number] 04/15/2024 Latonia Dehlendorf [facility] [address] [facility], [address] [id number] 05/14/2024 Latonia Camarena ASSESSMENTS Encounter Date Diagnosis Assessment Notes Treatment Notes Treatment Clinical Notes 01/04/2024 Psoriasis (ICD-10 - L40.9) 01/04/2024 Encounter for drug therapy (ICD-10 - Z79.899) 12/17/2023 Polyarthralgia (ICD-10 - M25.50) 12/17/2023 Dorsalgia, unspecified (ICD-10 - M54.9) 02/22/2024 Psoriasis (ICD-10 - L40.9) 02/22/2024 Psoriatic arthritis (ICD-10 - L40.50) 03/21/2024 Psoriasis (ICD-10 - L40.9) 03/21/2024 Psoriatic arthritis (ICD-10 - L40.50) 04/09/2024 Psoriasis (ICD-10 - L40.9) 04/09/2024 Psoriatic arthritis (ICD-10 - L40.50) 05/14/2024 Psoriasis (ICD-10 - L40.9) 05/14/2024 Psoriatic arthritis (ICD-10 - L40.50) 04/08/2024 Psoriatic arthritis (ICD-10 - L40.50) 12/17/2023 Neck pain (ICD-10 - M54.2) 03/21/2024 Primary generalized (osteo)arthritis (ICD-10 - M15.0) 04/09/2024 Primary generalized (osteo)arthritis (ICD-10 - M15.0) 05/14/2024 Primary generalized (osteo)arthritis (ICD-10 - M15.0) 12/17/2023 Psoriasis (ICD-10 - L40.9) 03/21/2024 Degenerative lumbar disc (ICD-10 - M51.36) 04/09/2024 Degenerative lumbar disc (ICD-10 - M51.36) 05/14/2024 Other intervertebral disc degeneration, lumbar region with discogenic back pain only (ICD-10 - M51.360) 12/17/2023 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) 03/21/2024 Other halfway (current) drug therapy (ICD-10 - Z79.899) 04/09/2024 Other intermodal customer service (current) drug therapy (ICD-10 - Z79.899) 05/14/2024 Other intermodal customer service (current) drug therapy (ICD-10 - Z79.899) 12/17/2023 Encounter for other specified special examinations (ICD-10 - Z01.89) 12/17/2023 Encounter for screening for respiratory tuberculosis (ICD-10 - Z11.1) PLAN OF TREATMENT Pending Test Test Name Order Date X ray : Hand left- outside order 024 X ray : Hand right- outside order 2023 X ray : Spines, cervical- outside order 12/17/2023 X ray : SI joints- outside order 024 -Xray slip given 12/17/2023 X ray : Knee, right 2 views- outside ord er 12/17/2023 X ray : Knee, left 2 views- outside orde r 12/17/2023 Insurance Providers Payer Name Payer Address Payer Phone Subscriber Number Group Number Insured Name Patient Relationship to Insured Coverage Start Date Coverage End Date [employer] [facility] [address] [place] [address] [id number] Leopoldo Velásquez Spouse - patient is the spouse of the insured 4 MEDICAL (GENERAL) HISTORY Medical History History ICD Code thyroid disease Kidney stones kidney infection Surgical History Surgery Date(Month/Year)
--- OUTSIDE RECORDS SUMMARY | 2024-10-24 11:35 | XMS_ITS | Encounter Summary ---
Author Organization [facility] Address 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
--- OUTSIDE RECORDS SUMMARY | 2024-10-24 11:35 | XMS_ITS | Encounter Summary ---
Author Organization [facility] Address 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
--- OUTSIDE RECORDS SUMMARY | 2024-10-24 11:35 | XMS_ITS | Referral Summary ---
Author Organization [facility] [address] [place] Address [address] [place] [address] Care Team Providers Care Director Of Content Marketing Name Role Phone Sarahi Roy MD Primary Care Provider + Allergies No known active allergies Medications levothyroxine (SYNTHROID) 75 mcg tablet Take 1 tablet (75 mcg total) by mouth thread marker before breakfast 1 Active fish oil-dha-epa 1,200-144-216 mg capsule Take 1 capsule by mouth daily with lunch Active aspirin 81 mg enteric coated tablet Take 1 tablet (81 mg total) by mouth with lunch Active coenzyme Q10 400 mg capsule Take 1 capsule (400 mg total) by mouth daily with lunch Active ltlvllyb-JMY-hwt nd-hyaluron ac 278-14-412-1 mg tablet Take 1 tablet by mouth with lunch Active psyllium, aspartame, SF (METAMUCIL SF) 3.4 gram packet Take 1 packet by mouth with lunch Active ascorbic acid (ascorbic acid with olivia hips) 500 mg tablet,chewable Take 1 tablet/chew tab (500 mg total) by mouth every morning Active acidophilus-pect in, citrus 100 million cell-10 mg capsule Take 1 capsule by mouth nightly as needed (gut health) Active multivitamin capsule Take 1 capsule by mouth daily Active cholecalciferol (VITAMIN D-3) 5,000 unit capsule Take 1 capsule (5,000 Units total) by mouth nightly Active zinc acetate 25 mg (zinc) capsule Take 25 mg by mouth daily with lunch Active betamethasone dipropionate (DIPROLENE) 0.05 % lotion Apply 1 Application topically 2 (two) times a day as needed for rash (Psoriasis Scalp) 3 Active solifenacin (VESIcare) 5 mg tablet 3 Active prednisoLONE acetate (PRED FORTE) 1 % ophthalmic suspension Administer 1 drop into both eyes daily as needed (Eye irritation) 3 Active estradioL (ESTRACE) 1 mg tablet Take 1 tablet (1 mg total) by mouth daily with lunch 3 Active tamsulosin (FLOMAX) 0.4 mg extended release capsule Take 1 capsule (0.4 mg total) by mouth daily 30 capsule 3 Active Additional Information Patient taking differently:0.4 mg oral Daily,Indications: Pt states hasn't taken yet, Informant: Self, Reported on 03/02/2023 oxyBUTYnin (DITROPAN) 5 mg tablet Take 1 tablet (5 mg total) by mouth 3 (three) times a day as needed (bladder spasms) for up to 5 days 15 tablet 3 Active docusate sodium (COLACE) 100 mg capsuleIndicatio ns:constipation Take 1 capsule (100 mg total) by mouth 2 (two) times a day for 5 days 10 capsule 3 Active Additional Information Patient not taking.Informant: Self, Reported on 03/02/2023 polyethylene glycol (MIRALAX) 17 gram packetIndication s:constipation Take 1 packet (17 g total) by mouth daily for 15 days 10 packet 3 Active tamsulosin (FLOMAX) 0.4 mg extended release capsuleIndicatio ns:stent pain Take 1 capsule (0.4 mg total) by mouth nightly 5 capsule 3 Active oxyBUTYnin (DITROPAN) 5 mg tabletIndication s:Urinary Urgency,Bladder spasms Take 1 tablet (5 mg total) by mouth 3 (three) times a day as needed (Bladder spasm) for up to 5 days 15 tablet 3 Active oxyCODONE (ROXICODONE) 5 mg immediate release tabletIndication s:Pain Take 1 tablet (5 mg total) by mouth every 4 (four) hours as needed for pain 10 tablet 3 Active Active Problems Problem Noted Date Diagnosed Date Hydronephrosis with ureteral stricture, not elsewhere classified 01/15/2023 Immunizations Immunization Administration Dates Next Due Hep A, Adult 08/14/2018 Pfizer SARS-CoV-2 Monovalent Vaccination (12+ Yrs) PURPLE 04/09/2021 Tdap 06/03/2015 Social History Tobacco Use Types Packs/Day Years Used Date Smoking Tobacco: Never Passive Smoke Exposure: Never Smokeless Tobacco: Never Tobacco Cessation:Counseling Given: Not Answered Personal Safety Answer Date Recorded Have you ever been in or are you currently in a harmful physical or emotional relationship or is someone making you feel afraid or unsafe? 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 Gender Identity Not on file Sexual Orientation Not on file Last Filed Vital Signs Vital Sign Reading Time Taken Comments Blood Pressure 113/51 03/15/2023 10:55 AM CDT Pulse 67 03/15/2023 11:30 AM CDT Temperature 36.4 C (97.5 F) 03/15/2023 10:55 AM CDT Respiratory Rate 20 03/15/2023 11:30 AM CDT Oxygen Saturation 100% 03/15/2023 11:30 AM CDT Inhaled Oxygen Concentration - - Weight 70.3 kg (155 lb) 03/02/2023 10:30 AM CDT Height 172.7 cm (5' 8 ) 03/02/2023 10:30 AM CDT Body Mass Index 23.57 03/02/2023 10:30 AM CDT Plan of Treatment Not on file Medical Devices Implanted Type Area Shredder Tender Device Identifier Shelf Expiration Date Model / Serial / Lot [employer] Medical edPULSE Stent Ureteral Set Double Pigtail Radiopaque Tip Universa [id number] Polyurethane Hydrophilic Coated [id number] - Sn/A - [id number] Implanted:Qty: 1 on 03/15/2023 by Sarah Cohn MD at [facility] Stent Left: Ureter [employer] 11/16/2025 [id number] / N/A / [id number] Explanted Type Area Shredder Tender Device Identifier Shelf Expiration Date Model / Serial / Lot [employer] Medical edPULSE Stent Ureteral Set Double Pigtail Radiopaque Tip Universa [id number] Polyurethane Hydrophilic Coated [id number] - Sn/A - [id number] Implanted:Qty: 1 on 03/01/2023 by Ross Jonas MD at [facility] Explanted:Qty: 1 on 03/15/2023 by Sarah Cohn MD at [facility] Other - see comments Left: Ureter [employer] [id number] 10/20/2025 [id number] / N/A / [id number] [employer] Stent Ureteral Set Double Pigtail Radiopaque Tip Universa [id number] Polyurethane Hydrophilic Coated [id number] - Sn/A - [id number] Implanted:Qty: 1 on 03/01/2023 by Ross Jonas MD at [facility] Explanted:Qty: 1 on 03/15/2023 by Sarah Cohn MD at [facility] Other - see comments Left: Ureter [employer] [id number] 10/24/2025 [id number] / N/A / [id number] Insurance [employer] OPEN ACCESS [employer] Care Teams Director Of Content Marketing Relationship Specialty Start Date End Date Sarahi Roy MD PCP - General Family Medicine 05/21/19
--- OUTSIDE RECORDS SUMMARY | 2024-10-24 11:35 | XMS_ITS | Encounter Summary ---
Author Organization [facility] Address [address] [place] [address] Care Team Providers Care Customer Support Engineer Name Role Phone Unavailable Primary Care Provider Unavailabl e Encounter Details Date Type Department Care Team (Late st Contact Info) Description 04/27/2022 Lab Requisition [facility] [address] [place] [id number] Lenard Arias MD [address] [place] [address] Social History Tobacco Use Types Packs/Day Years Used Date Smoking Tobacco: Never Assessed Sex and Gender Information Value Date Recorded Sex Assigned at Not on file Gender Identity Not on file Sexual Orientation Not on file documented as of this encounter Plan of Treatment Not on file documented as of this encounter Procedures Procedure Name Priority Date/Time Associated Diagnosis Comments DERMATOPATHOLOGY Routine 04/26/2022 12:0 0 AM CDT documented in this encounter Results * DERMATOPATHOLOGY (04/26/2022 12:00 AM CDT) Case Report Dermatopathology Report Case: [id number] Authorizing Provider: Lenard Arias MD Collected: 04/26/2022 12:00 AM Ordering Location: [facility] Received: 04/27/2022 12:08 PM Pathologist: Surya Villanueva MD Specimen: Skin, mid back 2 3:56 PM CDT DERMATOPATHOLOGY LABORATORY Final Diagnosis Specimen A. SKIN, mid back: 'BANDA' ANGIOMA (D18.01) 2 3:56 PM CDT DERMATOPATHOLOGY LABORATORY Clinical History R/O inflamed hemangioma 2 3:56 PM CDT DERMATOPATHOLOGY LABORATORY Gross Description Specimen A: Received is one formalin filled container labeled with the patient's name and designated mid back. The specimen consists of a shave biopsy measuring 6x5x3 mm. Jar 0. 2 3:56 PM CDT DERMATOPATHOLOGY LABORATORY Microscopic Description Specimen A. SKIN, mid back: In the dermis, there are dilated vascular spaces surrounded by thin, widely spaced endothelial cells. 2 3:56 PM CDT DERMATOPATHOLOGY LABORATORY Disclaimer An external and internal positive and negative controls are appropriate for the histochemical, immunohistochemical and immunofluorescence stain(s) in this case (if any), except where stated explicitly. The performance characteristics of the stain(s) cited in this report were developed and its performance characteristic determined by the Dermatopathology Laboratory at [facility], directed by Dr. Lakshmi Villanueva. These tests need not be, and therefore are not, approved by the [place] Food and Drug Administration. The tests are used for clinical purposes. Billing Codes Specimen Charges Stain Charges 85018 1 2 3:56 PM CDT DERMATOPATHOLOGY LABORATORY Embedded Images 2 3:56 PM CDT DERMATOPATHOLOGY LABORATORY Pathology/Cytolog y TISSUE SPECIMEN FROM SKIN / Unknown 04/26/2022 04/27/2022 12:08 PM CDT Lenard Arias MD LAB - PATHOLOGY/CYTO LOGY ORDERABLES DERMATOPATHOLOGY LABORATORY [facility] - Department of Dermatology [address], [address] [phone] documented in this encounter Visit Diagnoses Not on filedocumented in this encounter
--- OUTSIDE RECORDS SUMMARY | 2024-10-24 11:35 | XMS_ITS ---
Author Organization [facility] Address [address] [place], [place] [id number] Care Team Providers Care Physician Assistant Name Role Phone ELISEO FREEMAN, GWEN Primary Care Provider Unav ailable Latonia Camarena Unavailable [phone] REASON FOR VISIT f/u Encounters Encounter Location Date Provider Diagnosis [facility] [address], [address] [place], [place] [id number] 05/21/2024 Latonia Camarena PLAN OF TREATMENT No Information
--- OUTSIDE RECORDS SUMMARY | 2024-10-24 11:35 | XMS_ITS | Encounter Summary ---
Author Organization [facility] Address 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
--- OUTSIDE RECORDS SUMMARY | 2024-10-24 11:35 | XMS_ITS | Clinical Summary ---
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 Gender Identity Not on file Sexual Orientation Not on file Plan of Treatment Health Maintenance Due Date Last Done Comments DTAP/TDAP/TD VACCINES (1 - Tdap) 1986 HEPATITIS B VACCINES (1 of 3 - 19+ 3-dose series) 1986 PAP SMEAR 1988 CERVICAL CANCER SCREENING 1997 HPV/Cotest (30-65) 1997 PAP SMEAR 1997 BREAST CANCER SCREENING 2007 COLORECTAL SCREENING 2012 Colorectal Cancer Screening 2012 FIT-DNA Q 3 years 2012 FIT/FOBT Q 1 year 2012 Flex Sig/CT Colonography Q 5 years 2012 ZOSTER VACCINE (1 of 2) 2017 INFLUENZA VACCINE (#1) 2024 PNEUMOCOCCAL VACCINE 0-49 YEARS Aged Out No longer eligible based on patient's age to complete this topic Care Teams Certified Medical Records Coder Relationship Specialty Start Date End Date Sheri Cochran MD [address] [place], [place] [phone] PCP - General 02/09/01
--- OUTSIDE RECORDS SUMMARY | 2024-10-24 11:35 | XMS_ITS | Encounter Summary ---
Author Organization [facility] Address [address] [place] [address] Care Team Providers Care Heat Sealing Machine Operator Name Role Phone Sheri Cochran MD Primary Care Provider [phone] Encounter Details Date Type Department Care Team (Latest Contact Info) Description 01/03/2001 Outpatient Historical HIS PATIENT IN A BED GeorgesIman MD NO ADDRESS ON FILE Bone and joint disorders of maternal back, pelvis, and lower limbs, antepartum(648.73) (Primary Dx) Social History Tobacco Use Types Packs/Day Years Used Date Smoking Tobacco: Never Assessed Comments Unknown Sex and Gender Information Value Date Recorded Sex Assigned at Not on file 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
--- OUTSIDE RECORDS SUMMARY | 2024-10-24 11:35 | XMS_ITS ---
Author Organization [facility] Address [address] [place], [place] [id number] Care Team Providers Care French Folding Machine Operator Name Role Phone GWEN GOMES MD Primary Care Provider Latonia Aguilera Unavailable [phone] REASON FOR VISIT pa MEDICATIONS Medication SIG (Take, Route, Frequency, Duration) Notes Start Date End Date Status Hadlima PushTouch Autoinjector bwwd 40 mg/0.4 mL 0.4 mL subcutaneously every other week for 28 days 04/09/2024 Active Encounters Encounter Location Date Provider Diagnosis [facility] [address], [address] [place], [place] [id number] 05/14/2024 Latonia Camarena PLAN OF TREATMENT Medication Medication Name Sig Start Date Stop Date Notes Humira Pen 40 mg/0.4 mL 40mg subcutaneou sly every other week for 28 days 05/14/2024 Hadlima PushTouch Autoinjector bwwd 40 mg/0.4 mL 0.4 mL subcutaneously every other week for 28 days 04/09/2024
--- OUTSIDE RECORDS SUMMARY | 2024-10-24 11:36 | XMS_ITS | Clinical Summary ---
Author Organization [address] Address [address] [place] [address] Care Team Providers Care Waiter/Waitress Captain Name Role Phone Sarahi Roy MD Primary Care Provider + Allergies No known active allergies Medications levothyroxine (SYNTHROID) 75 mcg tablet Take 1 tablet (75 mcg total) by mouth head worker before breakfast 1 Active fish oil-dha-epa 1,200-144-216 mg capsule Take 1 capsule by mouth daily with lunch Active aspirin 81 mg enteric coated tablet Take 1 tablet (81 mg total) by mouth with lunch Active coenzyme Q10 400 mg capsule Take 1 capsule (400 mg total) by mouth daily with lunch Active ysnhihav-VYF-xpf nd-hyaluron ac 242-15-995-1 mg tablet Take 1 tablet by mouth [...] Vaccination (12+ Yrs) PURPLE 04/09/2021 Tdap 06/03/2015 Surgical History Surgery Date Site/Laterality Comments TOTAL ABDOMINAL HYSTERECTOMY W/ BILATERAL SALPINGOOPHORECTOMY ? 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 Gender Identity Not on file Sexual Orientation Not on file Obstetrics History Last Filed Vital Signs Vital Sign Reading [...] 03/02/2023 10:30 AM CDT Plan of Treatment Health Maintenance Due Date Last Done Comments Breast Cancer Screening-Mammogram 1967 Colon Cancer Screening-Colonoscopy 1967 Depression Screening 1967 Hepatitis C Screening 1967 Hepatitis B Screening 1985 Zoster Vaccine (1 of 2) 2017 Regular Well Visit/Exam 18-64 07/19/2022, 10/09/2019 Covid-19 Vaccine (2 - 2023-2 5 season) 2024 04/09/2021 Influenza Vaccine (#1) 2024 DTaP/Tdap/Td Vaccine (2 - Td or Tdap) 06/03/2025 06/03/2015 Pneumococcal vaccine <65 Aged Out No longer eligible based on patient's age to complete this topic Medical Devices Implanted Type Area Computer Systems Auditor Device Identifier Shelf Expiration Date Model / Serial / Lot [employer] Stent Ureteral Set Double Pigtail Radiopaque Tip Universa [id number] Polyurethane Hydrophilic Coated [id number] - Sn/A - [id number] Implanted:Qty: 1 on 03/15/2023 by Sarah Cohn MD at [facility] Stent Left: Ureter [employer] 11/16/2025 [id number] / N/A / [id number] Explanted Type Area Computer Systems Auditor Device Identifier Shelf Expiration Date Model / Serial / Lot [employer] Stent Ureteral Set Double Pigtail Radiopaque Tip Universa [id number] Polyurethane Hydrophilic Coated [id number] - Sn/A - [id number] Implanted:Qty: 1 on 03/01/2023 by Ross Jonas MD at [facility] Explanted:Qty: 1 on 03/15/2023 by Sarah Cohn MD at [facility] Other - see comments Left: Ureter [employer] [id number] 10/20/2025 [id number] / N/A / [id number] [employer] Stent Ureteral Set Double Pigtail Radiopaque Tip Universa [id number] Polyurethane Hydrophilic Coated [id number] - Sn/A - [id number] Implanted:Qty: 1 on 03/01/2023 by Ross Jonas MD at [facility] Explanted:Qty: 1 on 03/15/2023 by Sarah Cohn MD at [facility] Other - see comments Left: Ureter [employer] [id number] 10/24/2025 [id number] / N/A / [id number] Insurance [employer] OPEN ACCESS CIG[employer] CIGNA Care Teams Waiter/Waitress Captain Relationship Specialty Start Date End Date Sarahi Roy MD PCP - General Family Medicine 05/21/19
--- OUTSIDE RECORDS SUMMARY | 2024-10-24 11:36 | XMS_ITS | Encounter Summary ---
Author Organization [facility] Address [address] [place] [address] Care Team Providers Care Actuarial Technician Name Role Phone Sheri Cochran MD Primary Care Provider [phone] Encounter Details Date Type Department Care Team (Late st Contact Info) Description 12/10/2000 Outpatient Historical HIS PATIENT IN A BED Sourav Bolton MD [address] [facility] [address] [place] [address] Iman Georges MD NO ADDRESS ON FILE Other current maternal conditions classifiable elsewhere, antepartum (Primary Dx) Social History Tobacco Use Types Packs/Day Years Used Date Smoking Tobacco: Never Assessed Comments Unknown Sex and Gender Information Value Date Recorded Sex Assigned at Not on file 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
--- OUTSIDE RECORDS SUMMARY | 2024-10-24 11:36 | XMS_ITS | Encounter Summary ---
Author Organization [facility] Address 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
--- OUTSIDE RECORDS SUMMARY | 2024-10-24 11:36 | XMS_ITS | Encounter Summary ---
Author Organization [employer] [facility] Address 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
--- OUTSIDE RECORDS SUMMARY | 2024-10-24 11:36 | XMS_ITS | Clinical Summary ---
Author Organization [facility] Address [address] [facility] [place] [address] Care Team Providers Care Manager Winter Name Role Phone Unavailable Primary Care Provider Unavailabl e Source Comments [facility] [employer],non-owned Affiliates and Associated Physician Practices is amultiple site organization consisting of ambulatory clinics and hospital sitesin [place], [place], [place] and [place]. This disclosure is being madepursuant to the Care Everywhere program and may not contain all information available regarding this patient. Last updated 18.[facility] [employer] Social History Tobacco Use Types Packs/Day Years Used Date Smoking Tobacco: Never Assessed Sex and Gender Information Value Date Recorded Sex Assigned at Not on file Gender Identity Not on file Sexual Orientation Not on file Plan of Treatment Health Maintenance Due Date Last Done Comments COLOGUARD (AGES 45-75) - COL ON CA SCREENING 1967 COLON MONITORING 1967 COLONOSCOPY - COLON CA SCREENING 1967 CT COLONOGRAPHY - COLON CA SCREENING 1967 Colorectal Cancer Screening 1967 FIT - COLON CA SCREENING 1967 FLEX SIG - COLON CA SCREENING 1967 LIPID TESTING 1967 MAMMOGRAM 1967 PAP SMEAR 1967 HIV SCREENING 1982 HEPATITIS C SCREENING 06/13/1985 DTAP/TDAP/TD VACCINES (1 - Tdap) 1986 HEPATITIS B VACCINE (1 of 3 - 19+ 3-dose series) 1986 PNEUMOCOCCAL VACCINE 50+ (1 of 1 - PCV) 2017 ZOSTER VACCINE (1 of 2) 2017 COVID-19 VACCINE (1 - 2023-2 5 season) 2024 INFLUENZA VACCINE (#1) 2024 DEPRESSION SCREENING 07/30/2024 HIB VACCINE Aged Out No longer eligi ble based on patient's age to complete this topic HPV VACCINE Aged Out No longer eligi ble based on patient's age to complete this topic MENINGOCOCCAL (Group B) VACC INE SHARED DECISION-MAKING Aged Out No longer eligibl e based on patient's age to complete this topic MENINGOCOCCAL GROUPS A/C/Y/W VACCINE Aged Out No longer eligible b ased on patient's age to complete this topic PNEUMOCOCCAL VACCINE Aged Out No long er eligible based on patient's age to complete this topic
--- OUTSIDE RECORDS SUMMARY | 2024-10-24 11:36 | XMS_ITS | Encounter Summary ---
Author Organization [facility] Address 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
--- OUTSIDE RECORDS SUMMARY | 2024-10-24 11:36 | XMS_ITS ---
Author Organization [facility] Address [address] [place], [place] [address] Care Team Providers Care Billet Assembler Name Role Phone GWEN GOMES MD Primary Care Provider Unav Latonia Riojas Unavailable [phone] Joanne العلي Unavailable REASON FOR VISIT Due to work* MEDICATIONS Medication SIG (Take, Route, Frequency, Duration) Notes Start Date End Date Status curamed 750mg 1 bid Active CeleBREX 200 mg 1 cap(s) orally 2 ti mes a day for 30 days Active methotrexate 2.5 mg 6 tabs orally once a week for 28 days Active Hadlima PushTouch Autoinjector bwwd 40 mg/0.4 mL 0.4 mL subcutaneously every other week for 28 days 04/09/2024 Active glucosamine chondritin MSN 1500mg/1250mg Active CoQ10 (obsolete) 100 mg 1 cap(s) orally once a day 1000mg Active Collagen supplement daily Active fish oil/omega 3 1200mg/720mg Active Aspirin Low Dose 81 mg 1 tab(s) orally once a day Active famotidine 20 mg 1 tab(s) orally 2 ti mes a day Active Caltrate 600 + D 600 mg-20 mcg 1 tab(s) orally 2 times a day Active levothyroxine 75 mcg (0.075 mg) 1 tab(s) orally once a day A ctive Metamucil 3.4 g/5.2 g as directed orally once a day Active Xiidra 5% 1 gtt eye as directed Active estradiol 1 mg 1 tab(s) orally once a day Active Multivites as directed Active Vitamin C 250 mg 1 tab(s) chewed once a day Active Vitamin D3 1250 mcg 1 cap(s) orally once a week Active Boswellia Complex M1150 1 tab 2-4 times daily Active Digestive Enzymes 1 tab bid/meals Active Digestive Advantage Daily Probiotics - 1 cap(s) orally once a day A ctive biotin 5000 mcg 1 tab(s) orally once a day Active Zinc orally Active Encounters Encounter Location Date Provider Diagnosis [facility] [address] [place], [place] [id number] 09/16/2024 Joanne العلي PLAN OF TREATMENT No Information
--- OUTSIDE RECORDS SUMMARY | 2024-10-24 11:36 | XMS_ITS | Encounter Summary ---
Author Organization [employer] [facility] Address 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
[2024-10-24 16:22] LABS: Alanine Aminotransferase 15 U/L (6-35); Alkaline Phosphatase 84 U/L (38-126); Anion Gap 10 mmol/L (4-12); Aspartate Amino Transferase 30 U/L (14-36); Bilirubin,Total 0.7 mg/dL (0.2-1.3); Blood Urea Nitrogen 23 mg/dL (7-17); Carbon Dioxide 21 mmol/L (22-30); Chloride 110 mmol/L (98-107); Cholesterol 132 mg/dL (0-200); Estimated Glomerular Filt Rate > 60; Glucose 89 mg/dL (65-110); HDL Direct 54 mg/dL; Potassium 4.3 mmol/L (3.4-5.0); Sodium 141 mmol/L (137-145); Triglycerides 86 mg/dL (<150)
[2024-10-24 16:33] LABS: LDL Cholesterol Direct 54 mg/dL
[2024-10-24 16:52] LABS: Thyroid Stimulating Hormone 0.549 uIU/mL (0.465-4.680)
== END 2024-10-24 10:39 | disposition home or self-care (01) ==
LOC: ANHGOSHLAB 10:39
PROVIDERS: PCP Family Medicine; Visit Provider Student in an Organized Health Care Education/Training Program
DX: E03.9 Hypothyroidism, unspecified (principal); E66.3 Overweight; Z13.220 Encounter for screening for lipoid disorders
CPT/HCPCS: 36415; 80053; 80061; 84443

== ENCOUNTER 2025-03-03 14:40 | Outpatient (CLI) | payer BC, SELFPAY ==
--- NOTE | ~2025-03-03 | MM_ITS ---
EXAMINATION: MM scrn francy implant BI w alejandro INDICATION: Asymptomatic, referred for screening mammogram COMPARISON: None available 16/10 through 03/31/2016 TECHNIQUE: Digital Breast Tomosynthesis CC, MLO, and implant displaced CC and MLO views of Both breas ts were obtained with computer-aided detection to assist in interpretation of the study. FINDINGS: The breasts are heterogeneously dense, which may obscure small masses. Bilateral breast Retropectoral Silicone implants in place appears intact. No focal dominant mass, architectural distortion, or suspicious microcalcifications are identified. There are no features to suggest malignancy. IMPRESSION: 1. No evidence of malignancy in the breasts. 2. Both breasts Retropectoral Silicone implants appears intact. Recommend continued screening mammography BI-RADS 1, NEGATIVE Reviewed, dictated and finalized at location B.
--- OUTSIDE RECORDS SUMMARY | 2025-03-03 14:45 | XMS_ITS | Referral Summary ---
Author Organization [facility] Address [address] [place] [address] Care Team Providers Care Scientific Process Operator Name Role Phone Sarahi Roy MD Primary Care Provider + Allergies No known active allergies Medications levothyroxine (SYNTHROID) 75 mcg tablet Take 1 tablet (75 mcg total) by mouth spear fisher before breakfast 1 Active fish oil-dha-epa 1,200-144-216 mg capsule Take 1 capsule by mouth daily with lunch Active aspirin 81 mg enteric coated tablet Take 1 tablet (81 mg total) by mouth with lunch Active coenzyme Q10 400 mg capsule Take 1 capsule (400 mg total) by mouth daily with lunch Active mwqopbts-UWG-vvb nd-hyaluron ac 676-34-827-1 mg tablet Take 1 tablet by mouth [...] on file 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 Gender Identity Not on file Sexual Orientation [...] 10:30 AM CDT Height 172.7 cm (5' 8) 03/02/2023 10:30 AM CDT Body Mass Index 23.57 03/02/2023 10:30 AM CDT Plan of Treatment Not on file Medical Devices Implanted Type Area Websphere Developer Device Identifier Shelf Expiration Date Model / Serial / Lot [employer] Stent Ureteral Set Double Pigtail Radiopaque Tip Univers[employer] [id number] Polyurethane Hydrophilic Coated [id number] - Sn/A - [id number] Implanted:Qty: 1 on 03/15/2023 by Sarah Cohn MD at [facility] Stent Left: Ureter [employer] 11/16/2025 [id number] / N/A / [id number] Explanted Type Area Websphere Developer Device Identifier Shelf Expiration Date Model / Serial / Lot [employer] Stent Ureteral Set Double Pigtail Radiopaque Tip Universa [id number] Polyurethane Hydrophilic Coated [id number] - Sn/A - [id number] Implanted:Qty: 1 on 03/01/2023 by Ross Jonas MD at [facility] Advanced Medicine Explanted:Qty: 1 on 03/15/2023 by Sarah Cohn MD at [facility] Other - see comments Left: Ureter [employer] [id number] 10/20/2025 [id number] / N/A / [id number] [employer] Stent Ureteral Set Double Pigtail Radiopaque Tip Universa [id number] Polyurethane Hydrophilic Coated [id number] - Sn/A - [id number] Implanted:Qty: 1 on 03/01/2023 by Ross Jonas MD at [facility] Advanced Medicine Explanted:Qty: 1 on 03/15/2023 by Sarah Cohn MD at [facility] Other - see comments Left: Ureter [employer] [id number] 10/24/2025 [id number] / N/A / [id number] Insurance [employer] OPEN ACCESS [employer] Care Teams Scientific Process Operator Relationship Specialty Start Date End Date Sarahi Roy MD PCP - General Family Medicine 05/21/19
--- OUTSIDE RECORDS SUMMARY | 2025-03-03 14:45 | XMS_ITS | Encounter Summary ---
Author Organization [employer] Address 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
--- OUTSIDE RECORDS SUMMARY | 2025-03-03 14:45 | XMS_ITS ---
Author Organization [facility] Address [address] [place], [place] [address] Care Team Providers Care Loom Tuner Name Role Phone ELISEO FREEMAN, GWEN Primary Care Provider Unav ailable Latonia Camarena Unavailable [phone] REASON FOR VISIT f/u Encounters Encounter Location Date Provider Diagnosis [facility] [address], [address] [place], [place] [id number] 05/21/2024 Latonia Camarena PLAN OF TREATMENT No Information
--- OUTSIDE RECORDS SUMMARY | 2025-03-03 14:45 | XMS_ITS | Encounter Summary ---
Author Organization [facility] Address [address] [place] [address] Care Team Providers Care Application Helper Name Role Phone Sheri Cochran MD Primary Care Provider [phone] Encounter Details Date Type Department Care Team [...] on file Legal Sex Female 4:41 AM PRUNER Gender Identity Not on file Sexual Orientation Not on file documented as of this encounter Plan of Treatment Not on file documented as of this encounter Visit Diagnoses Diagnosis Bone and joint disorders of maternal back, pelvis, and lower limbs, antepartum(648.73)- Primary Bone and joint disorders of maternal back, pelvis, and lower limbs, antepartum documented in this encounter Care Teams Application Helper Relationship Specialty Start Date End Date Sheri Cochran MD [address] [place] [address] PCP - General 02/09/01 documented as of this encounter
--- OUTSIDE RECORDS SUMMARY | 2025-03-03 14:45 | XMS_ITS | Encounter Summary ---
Author Organization [facility] Address [address] [place] [address] Care Team Providers Care Accounting Officer Name Role Phone Sheri Cochran MD Primary Care Provider [phone] Encounter Details Date Type Department Care Team (Late st Contact Info) Description 12/10/2000 Outpatient Historical [facility] Sourav Bolton MD [address] [facility] [address] [place] [address] Iman Georges MD NO ADDRESS ON FILE Other current maternal conditions classifiable elsewhere, antepartum (Primary Dx) Social History Tobacco Use Types Packs/Day Years Used Date Smoking Tobacco: Never Assessed Comments Unknown Sex and Gender Information Value Date Recorded Sex Assigned at Not on file 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
--- OUTSIDE RECORDS SUMMARY | 2025-03-03 14:45 | XMS_ITS | Patient Health Record ---
Author Organization [facility] Address [address] [place], [place] [id number] Care Team Providers Care Panel Laminator Name Role Phone GWEN GOMES MD Primary Care Provider Livia amadolamar Latonia Camarena Unavailable [phone] Joanne العلي Unavailable ALLERGIES No Known Allergies REASON FOR REFERRAL No Information MEDICATIONS Medication [...] day 1000mg Active Collagen supplement daily Active PROBLEMS Problem Type ICD Code Onset Dates Problem Status W/U Status Risk SNOMED Code Notes Problem Psoriasis (L40.9) Active confirmed 9014 002 Problem Encounter for other specified special examinations (Z01.89) Active confirmed 524955581 Problem Psoriatic arthritis (L40.50) Active confirmed 790030227 Problem Primary generalized (osteo)arthritis (M15.0) Active confirmed 328248047 Problem Degenerative lumbar disc (M51.36) Active confirmed 32600786 VITAL SIGNS Heart Rate 70 /min 05/14/2024 Blood pressure diastolic 73 mm Hg 05/14/2024 Height 68 in 05/14/2024 Blood pressure systolic 115 mm Hg 05/14/2024 Weight 160 lbs 05/14/2024 BMI 24.33 kg/m2 05/14/2024 Encounters Encounter Location Date Provider Diagnosis [facility] [address] [place] [id number] 04/21/2024 Joanne العلي [facility] [address] [place] [address], [address] [id number] 03/21/2024 Latonia Detawnya Psoriasis L40.9 ; Psoriatic arthritis L40.50 ; Primary generalized (osteo)arthritis M15.0 ; Degenerative lumbar disc M51.36 and Other custodial (current) drug therapy Z79.899 [facility] [address] [place] [address], [address] [id number] 04/09/2024 Latonia Dehlendorf Psoriasis L40.9 ; Psoriatic arthritis L40.50 ; Primary generalized (osteo)arthritis M15.0 ; Degenerative lumbar disc M51.36 and Other custodial (current) drug therapy Z79.899 [facility] [address] [facility], [address] [id number] 05/21/2024 Latonia Camarena [facility] [address] [place] [address], [address] [id number] 05/14/2024 Latonia Camarena Psoriasis L40.9 ; Psoriatic arthritis L40.50 ; Primary generalized (osteo)arthritis M15.0 ; Other intervertebral disc degeneration, lumbar region with discogenic back pain only M51.360 and Other custodial (current) drug therapy Z79.899 [facility] [address] [place] [id number] 09/16/2024 Joanne العلي [facility] [address] [place] [address], [address] [id number] 03/04/2024 Latonia Camarena [facility] [address] [place] [address], [address] [id number] 04/08/2024 Latonia Camarena Psoriatic arthritis L40.50 [facility] [address] [place] [address], [address] [id number] 04/15/2024 Latonia Camarena [facility] [address] [place] [address], [address] [id number] 05/14/2024 Latonia Camarena ASSESSMENTS Encounter Date Diagnosis Assessment Notes Treatment Notes Treatment Clinical Notes Section Notes 03/21/2024 Psoriasis (ICD-10 - L40.9) Failed otezla, mtx. Enbrel denied, waiting on humira auth. She is open to skyrizi and tremfya as well. Likely will have to try TNF first. Synovitis on exam. Try increasing celebrex, 6 day pred burst. She likes to limit medicines as much as possible. Wrists bother her most right now.Check labs next time. 03/21/2024 Psoriatic arthritis (ICD-10 - L40.50) Failed otezla, mtx. Enbrel denied, waiting on humira auth. She is open to skyrizi and tremfya as well. Likely will have to try TNF first. Synovitis on exam. Try increasing celebrex, 6 day pred burst. She likes to limit medicines as much as possible. Wrists bother her most right now.Check labs next time. 04/09/2024 Psoriasis (ICD-10 - L40.9) Failed otezla, mtx. Enbrel denied, waiting on humira auth. She is open to skyrizi and tremfya as well. Likely will have to try TNF first. Synovitis on exam. Try increasing celebrex, 6 day pred burst. She likes to limit medicines as much as possible. Wrists bother her most right now.Check labs next time. 04/09/2024 Psoriatic arthritis (ICD-10 - L40.50) Failed otezla, mtx. Enbrel denied, waiting on humira auth. She is open to skyrizi and tremfya as well. Likely will have to try TNF first. Synovitis on exam. Try increasing celebrex, 6 day pred burst. She likes to limit medicines as much as possible. Wrists bother her most right now.Check labs next time. 05/14/2024 Psoriasis (ICD-10 - L40.9) PsA- failed Otezla and MTX. Look into Humira. QFN and Hep neg in November 2023. Discussed increased risk of infection, skin cancer. Labs next visit. Cont Celebrex. She also has OA/DJD 05/14/2024 Psoriatic arthritis (ICD-10 - L40.50) PsA- failed Otezla and MTX. Look into Humira. QFN and Hep neg in November 2023. Discussed increased risk of infection, skin cancer. Labs next visit. Cont Celebrex. She also has OA/DJD 04/08/2024 Psoriatic arthritis (ICD-10 - L40.50) 03/21/2024 Primary generalized (osteo)arthritis (ICD-10 - M15.0) Failed otezla, mtx. Enbrel denied, waiting on humira auth. She is open to skyrizi and tremfya as well. Likely will have to try TNF first. Synovitis on exam. Try increasing celebrex, 6 day pred burst. She likes to limit medicines as much as possible. Wrists bother her most right now.Check labs next time. 04/09/2024 Primary generalized (osteo)arthritis (ICD-10 - M15.0) Failed otezla, mtx. Enbrel denied, waiting on humira auth. She is open to skyrizi and tremfya as well. Likely will have to try TNF first. Synovitis on exam. Try increasing celebrex, 6 day pred burst. She likes to limit medicines as much as possible. Wrists bother her most right now.Check labs next time. 05/14/2024 Primary generalized (osteo)arthritis (ICD-10 - M15.0) PsA- failed Otezla and MTX. Look into Humira. QFN and Hep neg in November 2023. Discussed increased risk of infection, skin cancer. Labs next visit. Cont Celebrex. She also has OA/DJD 03/21/2024 Degenerative lumbar disc (ICD-10 - M51.36) Failed otezla, mtx. Enbrel denied, waiting on humira auth. She is open to skyrizi and tremfya as well. Likely will have to try TNF first. Synovitis on exam. Try increasing celebrex, 6 day pred burst. She likes to limit medicines as much as possible. Wrists bother her most right now.Check labs next time. 04/09/2024 Degenerative lumbar disc (ICD-10 - M51.36) Failed otezla, mtx. Enbrel denied, waiting on humira auth. She is open to skyrizi and tremfya as well. Likely will have to try TNF first. Synovitis on exam. Try increasing celebrex, 6 day pred burst. She likes to limit medicines as much as possible. Wrists bother her most right now.Check labs next time. 05/14/2024 Other intervertebral disc degeneration, lumbar region with discogenic back pain only (ICD-10 - M51.360) PsA- failed Otezla and MTX. Look into Humira. QFN and Hep neg in November 2023. Discussed increased risk of infection, skin cancer. Labs next visit. Cont Celebrex. She also has OA/DJD 03/21/2024 Other custodial (current) drug therapy (ICD-10 - Z79.899) Failed otezla, mtx. Enbrel denied, waiting on humira auth. She is open to skyrizi and tremfya as well. Likely will have to try TNF first. Synovitis on exam. Try increasing celebrex, 6 day pred burst. She likes to limit medicines as much as possible. Wrists bother her most right now.Check labs next time. 04/09/2024 Other watermaster (current) drug therapy (ICD-10 - Z79.899) Failed otezla, mtx. Enbrel denied, waiting on humira auth. She is open to skyrizi and tremfya as well. Likely will have to try TNF first. Synovitis on exam. Try increasing celebrex, 6 day pred burst. She likes to limit medicines as much as possible. Wrists bother her most right now.Check labs next time. 05/14/2024 Other watermaster (current) drug therapy (ICD-10 - Z79.899) PsA- failed Otezla and MTX. Look into Humira. QFN and Hep neg in November 2023. Discussed increased risk of infection, skin cancer. Labs next visit. Cont Celebrex. She also has OA/DJD PLAN OF TREATMENT Pending Test Test Name [...] Coverage Start Date Coverage End Date [employer] [facility] [address] [place] [address] [id number] Leopoldo Velásquez Spouse - patient is the spouse of the insured 4 MEDICAL (GENERAL) HISTORY Medical History History ICD Code thyroid disease Kidney stones kidney infection Surgical History Surgery Date(Month/Year)
--- OUTSIDE RECORDS SUMMARY | 2025-03-03 14:45 | XMS_ITS | Encounter Summary ---
Author Organization [facility] Address 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
--- OUTSIDE RECORDS SUMMARY | 2025-03-03 14:45 | XMS_ITS ---
Author Organization [facility] Address [address] [place], [place] [phone] Care Team Providers Care Picker And Sorter Load And Unload Name Role Phone GWEN GOMES MD Primary Care Provider Latonia Aguilera Unavailable [phone] REASON FOR VISIT pa MEDICATIONS Medication SIG (Take, Route, Frequency, Duration) Notes Start Date End Date Status Hadlima PushTouch Autoinjector bwwd 40 mg/0.4 mL 0.4 mL subcutaneously every other week for 28 days 04/09/2024 Active Encounters Encounter Location Date Provider Diagnosis [facility] [address], [address] [place], [place] [phone] 05/14/2024 Latonia Camarena PLAN OF TREATMENT Medication Medication Name Sig Start Date Stop Date Notes Humira Pen 40 mg/0.4 mL 40mg subcutaneou sly every other week for 28 days 05/14/2024 Hadlima PushTouch Autoinjector bwwd 40 mg/0.4 mL 0.4 mL subcutaneously every other week for 28 days 04/09/2024
--- OUTSIDE RECORDS SUMMARY | 2025-03-03 14:45 | XMS_ITS | Encounter Summary ---
Author Organization [facility] Address [address] [facility] [place] [address] Care Team Providers Care Mold Capper Helper Name Role Phone Unavailable Primary Care Provider Unavailabl e Encounter Details Date Type Department Care Team (Late st Contact Info) Description 04/27/2022 Lab Requisition [facility] [address] [place] [id number] Lenard Arias MD [address] [place] [address] Social History Tobacco Use Types Packs/Day Years Used Date Smoking Tobacco: Never Assessed Comments Unknown Sex and Gender Information Value Date Recorded Sex Assigned at Not on file Legal Sex Female 11:10 AM CDT Gender Identity Not on file Sexual Orientation Not on file documented as of this encounter Plan of Treatment Not on file documented as of this encounter Procedures Procedure Name Priority Date/Time Associated Diagnosis Comments DERMATOPATHOLOGY Routine 04/26/2022 12:0 0 AM CDT documented in this encounter Results * DERMATOPATHOLOGY (04/26/2022 12:00 AM CDT) Case Report Dermatopathology Report Case: [id number] Authorizing Provider: Lenard Arias MD Collected: 04/26/2022 12:00 AM Ordering Location: [facility] Received: 04/27/2022 12:08 PM Pathologist: Surya Villanueva MD Specimen: Skin, mid back 2 3:56 PM CDT DERMATOPATHOLOGY LABORATORY Final Diagnosis Specimen A. SKIN, mid back: 'BANDA' ANGIOMA (D18.01) 2 3:56 PM CDT DERMATOPATHOLOGY LABORATORY at 1556 CDT Clinical History R/O inflamed hemangioma 2 3:56 [...] characteristic determined by the Dermatopathology Laboratory at [facility], directed by Dr. Lakshmi Villanueva. These tests need not be, and therefore are not, approved by the [place] Food and Drug Administration. The tests are used for clinical purposes. Billing Codes Specimen Charges Stain Charges 18730 1 2 3:56 PM CDT DERMATOPATHOLOGY LABORATORY Embedded Images 2 3:56 PM CDT DERMATOPATHOLOGY LABORATORY Pathology/Cytolog y TISSUE SPECIMEN FROM SKIN / Unknown 04/26/2022 04/27/2022 12:08 PM CDT Lenard Arias MD LAB - PATHOLOGY/CYTOLOGY ORD ERABLES Final Result DERMATOPATHOLOGY LABORATORY [facility] - Department of Dermatology [address] [place] [address], [facility] [phone] documented in this encounter Visit Diagnoses Not on filedocumented in this encounter
--- OUTSIDE RECORDS SUMMARY | 2025-03-03 14:45 | XMS_ITS | Clinical Summary ---
Author Organization [facility] Address [address] [facility] Attn: [place] [address] Care Team Providers Care Boring Machine Operator Vertical Name Role Phone Sheri Cochran MD Primary Care Provider [phone] Social History Tobacco Use Types Packs/Day Years Used Date Smoking Tobacco: Never Assessed Comments Unknown Sex and Gender Information Value Date Recorded Sex Assigned at Not on file Legal Sex Female 4:41 AM L D RN Gender Identity Not on file Sexual Orientation Not on file Plan of Treatment Health Maintenance Due Date Last Done Comments DTAP/TDAP/TD VACCINES (1 - Tdap) 1986 HEPATITIS B VACCINES (1 of 3 - 19+ 3-dose series) 05/31 HPV/Cotest (21-29) 1988 CERVICAL CANCER SCREENING 1997 HPV/Cotest (30-65) 1997 PAP SMEAR 1997 BREAST CANCER SCREENING 2007 COLORECTAL SCREENING 2012 Colorectal Cancer Screening 2012 FIT-DNA Q 3 years 2012 FIT/FOBT Q 1 year 2012 Flex Sig/CT Colonography Q 5 years 2012 ZOSTER VACCINE (1 of 2) 2017 INFLUENZA VACCINE (#1) 2025 Care Teams Boring Machine Operator Vertical Relationship Specialty Start Date End Date Sheri Cochran MD [address] [place] [address] [facility] - General 02/09/01
--- OUTSIDE RECORDS SUMMARY | 2025-03-03 14:45 | XMS_ITS | Encounter Summary ---
Author Organization [employer] [facility] Address 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
--- OUTSIDE RECORDS SUMMARY | 2025-03-03 14:46 | XMS_ITS | Encounter Summary ---
Author Organization [employer] [facility] Address 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
--- OUTSIDE RECORDS SUMMARY | 2025-03-03 14:46 | XMS_ITS | Encounter Summary ---
Author Organization [employer] [facility] Address 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
--- OUTSIDE RECORDS SUMMARY | 2025-03-03 14:46 | XMS_ITS | Clinical Summary ---
Author Organization [address] Address [address] [place] [address] Care Team Providers Care Supervisor Treating And Pumping Name Role Phone Sarahi Roy MD Primary Care Provider + Allergies No known active allergies Medications levothyroxine (SYNTHROID) 75 mcg tablet Take 1 tablet (75 mcg total) by mouth forensic social worker before breakfast 1 Active fish oil-dha-epa 1,200-144-216 mg capsule Take 1 capsule by mouth daily with lunch Active aspirin 81 mg enteric coated tablet Take 1 tablet (81 mg total) by mouth with lunch Active coenzyme Q10 400 mg capsule Take 1 capsule (400 mg total) by mouth daily with lunch Active febqvfdm-WDO-ohm nd-hyaluron ac 035-62-753-1 mg tablet Take 1 tablet by mouth [...] on file Legal Sex Female 12:27 PM 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 Gender Identity Not on file Sexual Orientation [...] 5 season) 2024 04/09/2021 Influenza Vaccine (#1) 2025 DTaP/Tdap/Td Vaccine (2 - Td or Tdap) 06/03/2025 06/03/2015 Pneumococcal vaccine <65 Aged Out No longer eligible based on patient's age to complete this topic Medical Devices Implanted Type Area Director Of Teenage Activities Device Identifier Shelf Expiration Date Model / Serial / Lot [employer] Stent Ureteral Set Double Pigtail Radiopaque Tip [employer] [id number] Polyurethane Hydrophilic Coated [id number] - Sn/A - [id number] Implanted:Qty: 1 on 03/15/2023 by Sarah Cohn MD at [facility] Stent Left: Ureter [employer] 11/16/2025 [id number] / N/A / [id number] Explanted Type Area Director Of Teenage Activities Device Identifier Shelf Expiration Date Model / Serial / Lot [employer] Stent Ureteral Set Double Pigtail Radiopaque Tip Universa [id number] Polyurethane Hydrophilic Coated [id number] - Sn/A - [id number] Implanted:Qty: 1 on 03/01/2023 by Ross Jonas MD at [facility] [employer] Explanted:Qty: 1 on 03/15/2023 by Sarah Cohn MD at [facility] Other - see comments Left: Ureter [employer] [id number] 10/20/2025 [id number] / N/A / [id number] [employer] Stent Ureteral Set Double Pigtail Radiopaque Tip Universa [id number] Polyurethane Hydrophilic Coated [id number] - Sn/A - [id number] Implanted:Qty: 1 on 03/01/2023 by Ross Jonas MD at [facility] [employer] Explanted:Qty: 1 on 03/15/2023 by Sarah Cohn MD at [facility] Other - see comments Left: Ureter [employer] [id number] 10/24/2025 [id number] / N/A / [id number] Insurance CIGNA OPEN ACCESS CIGNA CIGNA Care Teams Supervisor Treating And Pumping Relationship Specialty Start Date End Date Sarahi Roy MD PCP - General Family Medicine 05/21/19
--- OUTSIDE RECORDS SUMMARY | 2025-03-03 14:46 | XMS_ITS | Clinical Summary ---
Author Organization [facility] Address [address] [place] [address] Care Team Providers Care Plate Glass Grinder Name Role Phone Unavailable Primary Care Provider Unavailabl e Source Comments [facility] [employer],non-owned Affiliates and Associated Physician Practices is amultiple site organization consisting of ambulatory clinics and hospital sitesin [place], [place], [place] and [place]. This disclosure is being madepursuant to the Care Everywhere program and may not contain all information available regarding this patient. Last updated 18.[facility] [employer] Social History Tobacco Use Types Packs/Day Years [...] SCREENING 1967 LIPID TESTING 1967 MAMMOGRAM 1967 HIV SCREENING 1982 HEPATITIS C SCREENING 06/13/1985 DTAP/TDAP/TD VACCINES (1 - Tdap) 1986 HEPATITIS B VACCINE (1 of 3 - 19+ 3-dose series) 1986 PAP SMEAR 1988 PNEUMOCOCCAL VACCINE 50+ (1 of 1 - PCV) 2017 ZOSTER VACCINE (1 of 2) 2017 COVID-19 VACCINE (1 - 2023-2 5 season) 2024 DEPRESSION SCREENING 07/30/2024 INFLUENZA VACCINE (#1) 2025 HIB VACCINE Aged Out No longer eligi [...] on patient's age to complete this topic Insurance [facility]
--- OUTSIDE RECORDS SUMMARY | 2025-03-03 14:46 | XMS_ITS | Encounter Summary ---
Author Organization [employer] [facility] Address 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) Social History Tobacco Use Types Packs/Day Years Used Date Smoking Tobacco: Never Assessed Comments Unknown Sex and Gender Information Value Date Recorded Sex Assigned at Not on file Legal 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
--- OUTSIDE RECORDS SUMMARY | 2025-03-03 14:46 | XMS_ITS | Encounter Summary ---
Author Organization [employer] [facility] Address [address] [place] [address] Care Team Providers Care Automobile Upholstery Trim Installer Name Role Phone Sheri Cochran MD Primary Care Provider [phone] Encounter Details Date Type Department Care Team (Latest Contact Info) Description 10/31/1999 Outpatient Historical [facility] Kailey Burns MD NO ADDRESS ON FILE Female infertility of unspecified origin (Primary Dx) Social History Tobacco Use Types Packs/Day Years Used Date Smoking Tobacco: Never Assessed Comments Unknown Sex and Gender Information Value Date Recorded Sex Assigned at Not on file 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
--- OUTSIDE RECORDS SUMMARY | 2025-03-03 14:46 | XMS_ITS ---
Author Organization [facility] Address [address] [place], [place] [address] Care Team Providers Care Customs Entry Clerk Name Role Phone GWEN GOMES MD Primary Care Provider Unav Latonia Riojas Unavailable [phone] Joanne العلي Unavailable [phone] REASON FOR VISIT Due to work* MEDICATIONS [...] Date Provider Diagnosis [facility] [address] [place], [place] [id number] 09/16/2024 Joanne العلي PLAN OF TREATMENT No Information
== END 2025-03-03 14:41 | disposition home or self-care (01) ==
LOC: ANHIMG 14:42
PROVIDERS: PCP Family Medicine; Visit Provider Obstetrics & Gynecology Gynecology
DX: Z12.31 Encounter for screening mammogram for malignant neoplasm of breast (principal); Z98.82 Breast implant status
CPT/HCPCS: 77063; 77067